=== PATIENT | male | born 1960 | race Native Hawaiian/Other Pacific Islander ===

== ENCOUNTER 2017-06-20 00:35 | Emergency (ER) | payer OTHER ==
[2017-06-20 00:39] VITALS: BP 135/83; PULSE 78; RESP 20; TEMP 98.2
[2017-06-20] MEDS ORDERED: KETOROLAC 30 MG/ML 1 ML VIAL IM STA (01:16)
[2017-06-20] MEDS ORDERED: ORPHENADRINE 30 MG/ML 2 ML VIAL IM STA (01:16)
--- NOTE | 2017-06-20 01:18 | ED ---
Back Pain HPI - General Chief Complaint: Back Pain/Injury Stated Complaint: back pain Time Seen by Provider: 06/20/17 00:50 Source: patient Limitations: no limitations - History of Present Illness Initial Comments: 57-year-old male patient presents for evaluation of left lower back pain. Patient states the pain started earlier today after he was lifting heavy loads of wood for a friend. States that it worsens night when he was going to go to bed. He states the pain does worsen with any type of movement or twisting motions. He denies any radiation of the pain down his legs. Denies any leg numbness or tingling. Denies any difficulty in relating. He denies any loss of bowel or bladder control. Denies any saddle anesthesia. States he has had chronic back pain issues in the past, states that this does feel similar to those episodes. Denies any falls or injuries causing the pain. Patient denies any recent rash, fever, chills, shortness breath, chest pain, abdominal pain, nausea, vomiting, diarrhea, constipation, dizziness, hematuria, dysuria, urinary urgency, urinary frequency, headache, visual changes, or any other complaints. - Related Data Previous Rx's Medication Instructions Recorded Cyclobenzaprine [Flexeril] 10 mg PO TID #15 tab 06/20/17 Ibuprofen [Motrin] 600 mg PO Q8HR PRN #30 tab 06/20/17 Allergies Allergy/AdvReac Type Severity Reaction Status Date / Time No Known Allergies Allergy Verified 06/20/17 00:39 Review of Systems ROS Statement: Those systems with pertinent positive or pertinent negative responses have been documented in the HPI. ROS Other: All systems not noted in ROS Statement are negative. Past Medical History Past Medical History: No Reported History History of Any Multi-Drug Resistant Organisms: None Reported Additional Past Surgical History / Comment(s): liver surgery Past Psychological History: No Psychological Hx Reported Smoking Status: Current every day smoker Past Alcohol Use History: Occasional Past Drug Use History: None Reported General Exam Limitations: no limitations General appearance: alert, in no apparent distress, other (Well-developed, well- nourished adult male patient in no acute distress. Vital signs upon presentation are temperature 98.2F, pulse 78, respirations 20, blood pressure 135/83, pulse ox 98% on room air.) Eye exam: Present: normal appearance, PERRL, EOMI. Absent: scleral icterus, conjunctival injection, periorbital swelling ENT exam: Present: normal exam, normal oropharynx, mucous membranes moist Neck exam: Present: normal inspection, full ROM. Absent: tenderness, meningismus, lymphadenopathy Respiratory exam: Present: normal lung sounds bilaterally. Absent: respiratory distress, wheezes, rales, rhonchi, stridor Cardiovascular Exam: Present: regular rate, normal rhythm, normal heart sounds. Absent: systolic murmur, diastolic murmur, rubs, gallop, clicks GI/Abdominal exam: Present: soft, normal bowel sounds. Absent: distended, tenderness, guarding, rebound, rigid Extremities exam: Present: normal inspection, full ROM, normal capillary refill , other (Lower extremity skin is pink, warm, and dry. Cap refills less than 3 seconds. Post tibial and pedal pulses are intact and 2+ bilaterally.). Absent : tenderness, pedal edema, joint swelling, calf tenderness Back exam: Present: normal inspection, other (Strength in all 4 cavities is 5/5. ). Absent: tenderness, vertebral tenderness Neurological exam: Present: alert, oriented X3, CN II-XII intact Psychiatric exam: Present: normal affect, normal mood Skin exam: Present: warm, dry, intact, normal color. Absent: rash Course Vital Signs 06/20/17 00:37 Temperature 98.2 F Pulse Rate 78 Respiratory 20 Rate Blood Pressure 135/83 O2 Sat by Pulse 98 Oximetry Medical Decision Making - Medical Decision Making 57-year-old male patient presents to emergency department today for evaluation of left lower back pain. Patient reports that he has had pain similar to this in the past. He states that symptoms started after lifting heavy loads today. Physical examination is unremarkable. Patient is neurologically intact, strength is equal in all 4 extremities. No evidence of rash or tenderness to the area. He will be given IM Toradol and Norflex here in the department. He' ll be given a prescription for ibuprofen and Flexeril at home. He is instructed to follow-up with his primary care physician for recheck in 1-2 days. He is instructed to return here immediately for any new, worsening, or concerning symptoms. He verbalizes understanding and agrees with this plan. Disposition Clinical Impression: Low back pain Disposition: HOME SELF-CARE Condition: Good Instructions: Acute Low Back Pain (ED) Additional Instructions: Take medications as directed. Apply warm moist heat to the area. Follow-up with her primary care physician for recheck in 1-2 days. Return here immediately for any new, worsening, or concerning symptoms. Prescriptions: Cyclobenzaprine [Flexeril] 10 mg PO TID #15 tab Ibuprofen [Motrin] 600 mg PO Q8HR PRN #30 tab PRN Reason: Pain Referrals: None,Stated [Primary Care Provider] - 1-2 days Time of Disposition: 01:17
== END 2017-06-20 01:42 | disposition home or self-care (01) ==
LOC: EC 00:35
DX: M54.5 Low back pain (principal); F17.200 Nicotine dependence, unspecified, uncomplicated; X50.0XXA Overexertion from strenuous movement or load, initial encounter
CPT/HCPCS: 99283 ×2; 96372 ×3; J2360; J1885

== ENCOUNTER 2018-01-09 20:47 | Emergency (ER) | payer OTHER ==
[2018-01-09 21:17] VITALS: BP 137/92; PULSE 91; RESP 18; TEMP 98.4
[2018-01-09] MEDS ORDERED: OFLOXACIN 0.3% OPHTH DROPS 5 ML BOTTLE RIGHT EAR STA (22:07)
[2018-01-09] MEDS ORDERED: CEPHALEXIN 500 MG CAP PO STA (22:08)
--- NOTE | 2018-01-09 22:29 | ED ---
General Adult HPI - General Chief complaint: ENT Stated complaint: rt earache Time Seen by Provider: 01/09/18 21:56 Source: patient, RN notes reviewed Mode of arrival: ambulatory Limitations: no limitations - History of Present Illness Initial comments: 57-year-old male presents to the emergency department for a chief complaint of right ear pain x 12 hours. Patient states he woke up this morning and had pain in his right ear. Patient admits that his hearing is mildly decreased in the right ear as well. Patient states that his looked in the ear and states it looked red. Patient denies any recent swimming or hot tubs. Patient denies anything different in his daily routine. Patient denies any cough congestion sore throat. No other complaints at this time including shortness of breath, chest pain, abdominal pain, nausea or vomiting, or headache. - Related Data Previous Rx's Medication Instructions Recorded Cephalexin [Keflex] 500 mg PO Q12HR #20 cap 01/09/18 Ofloxacin 0.3% Otic Soln [Floxin 10 drops RIGHT EAR BID 10 Days ml 01/09/18 0.3% Otic Soln] Allergies Allergy/AdvReac Type Severity Reaction Status Date / Time No Known Allergies Allergy Verified 01/09/18 21:17 Review of Systems ROS Statement: Those systems with pertinent positive or pertinent negative responses have been documented in the HPI. ROS Other: All systems not noted in ROS Statement are negative. Past Medical History Past Medical History: No Reported History History of Any Multi-Drug Resistant Organisms: None Reported Past Surgical History: No Surgical Hx Reported Additional Past Surgical History / Comment(s): liver surgery Past Psychological History: No Psychological Hx Reported Smoking Status: Current every day smoker Past Alcohol Use History: Daily Past Drug Use History: None Reported General Exam Limitations: no limitations General appearance: alert, in no apparent distress Head exam: Present: atraumatic, normocephalic, normal inspection Eye exam: Present: normal appearance, PERRL, EOMI. Absent: scleral icterus, conjunctival injection, periorbital swelling ENT exam: Present: normal oropharynx. Absent: TM's normal bilaterally (Right ear canal has exudative drainage. Tympanic membrane not visualized due to drainage. Patient has pain with pulling of the pinna. No pain with palpation of the tragus. No pain, swelling, or redness in the mastoid area. Left ear canal and tympanic membrane within normal limits.), normal external ear exam Neck exam: Present: normal inspection, full ROM. Absent: tenderness, meningismus, lymphadenopathy Respiratory exam: Present: normal lung sounds bilaterally. Absent: respiratory distress, wheezes, rales, rhonchi, stridor Cardiovascular Exam: Present: regular rate, normal rhythm, normal heart sounds. Absent: systolic murmur, diastolic murmur, rubs, gallop, clicks Course Vital Signs 01/09/18 21:15 Temperature 98.4 F Pulse Rate 91 Respiratory 18 Rate Blood Pressure 137/92 O2 Sat by Pulse 99 Oximetry Medical Decision Making - Medical Decision Making 57-year-old male presents to the emergency department for chief late of right ear pain times one day. Patient states his said it looked red. Patient denies swimming or hot tubs. Patient is not diabetic. On exam there is exudative drainage in the external ear canal. Drainage was cultured. No pain to tapping or palpation of the mastoid. No pain behind the ear. No redness or swelling to the mastoid process. The rest of the exam is unremarkable. Patient was given some ofloxacin drops and Keflex in the emergency department. He was given a prescription for ofloxacin and Keflex to start tomorrow. He is to follow-up with his primary care provider in one to 2 days. This was heavily stressed as if he is not getting better it can cause worse infections. He was educated on this. Patient will return to the emergency department if he develops any fevers or worsening symptoms. Disposition Clinical Impression: Otitis externa Disposition: HOME SELF-CARE Condition: Good Instructions: Otitis Externa (ED) Additional Instructions: Please use antibiotic drops and oral antibiotic as directed. Please follow-up with primary care provider in one to 2 days. Please return to the emergency department if you have any worsening symptoms, develop a fever, or have pain behind the ear. Prescriptions: Cephalexin [Keflex] 500 mg PO Q12HR #20 cap Ofloxacin 0.3% Otic Soln [Floxin 0.3% Otic Soln] 10 drops RIGHT EAR BID 10 Days ml Is patient prescribed a controlled substance at d/c from ED?: No Referrals: Margaret Workman MD [Primary Care Provider] - 1-2 days Time of Disposition: 22:28
== END 2018-01-09 22:35 | disposition home or self-care (01) ==
LOC: EC 20:47
DX: H60.91 Unspecified otitis externa, right ear (principal); F17.200 Nicotine dependence, unspecified, uncomplicated
CPT/HCPCS: 87070; 87205; 99283

== ENCOUNTER 2018-03-08 17:04 | Observation (INO) | payer OTHER ==
--- NOTE | 2018-03-08 17:59 | CT ---
EXAMINATION TYPE: CT mastoid wo con DATE OF EXAM: 03/08/2018 COMPARISON: NONE HISTORY: Swelling behind right ear. CT DLP: 150 mGycm. Automated Exposure Control for Dose Reduction was Utilized. TECHNIQUE: CT scan of internal auditory canal is performed without contrast, thin cut axial images ar e obtained, coronal reformatted images are also reviewed. FINDINGS: There is mild mucosal thickening in the medial and anterior right mastoid sinus. There are small fluid levels. The internal auditory canals are symmetric. There is no sign of cerebellopontine angle mass. There is debris in the external auditory canals bilaterally and more on the right side. T his extends on the right side to the tympanic membrane. There is some mucosal thickening in the epity mpanic recess on the right side. There is significant opacification of the right middle ear cavity. T he cochlea and semicircular canals are symmetric. There is slight expansion of the right external aud itory canal with probably some erosion of the roof. IMPRESSION: There is evidence for chronic right side otitis interna and external. There is also mild right side m astoiditis. There is significant opacification of the external auditory canals and much more on the r ight side more likely related to debris. Tumor is not excluded. Follow-up is recommended.
[2018-03-08] MEDS ORDERED: NALOXONE 0.4 MG/ML 1 ML VIAL IV PRN (18:16)
--- NOTE | 2018-03-08 18:16 | ED ---
ENT HPI - General Chief complaint: ENT Stated complaint: Ear Pain, Cannot hear Time Seen by Provider: 03/08/18 17:25 Source: patient Mode of arrival: ambulatory Limitations: no limitations - History of Present Illness Initial comments: 57-year-old male patient presents to the emergency department today for decreased hearing his bilateral ears. Patient states that the right ear is worse and that he has been unable to care for the last 3 days. Patient states he has also been having pain to the right ear. States that he has had pain and swelling behind the right ear as well. Patient states that he did have an infection on the right side approximately 3 months ago. States that he doesn't feel like it ever got better. States he did complete his antibiotic prescription. Patient denies any fevers or chills. States he has been sick recently with nasal congestion and sore throat. States that he has had clear drainage from the left ear but none from the right. Patient denies any recent rash, shortness breath, chest pain, abdominal pain, nausea, vomiting, diarrhea, constipation, back pain, numbness, tingling, dizziness, weakness, hematuria, dysuria, urinary urgency, urinary frequency, headache, visual changes, or any other complaints. - Related Data Home Medications Medication Instructions Recorded Confirmed Ofloxacin 0.3% Otic Soln [Floxin 10 drops RIGHT EAR DIRECTED 03/08/18 0.3% Otic Soln] Allergies Allergy/AdvReac Type Severity Reaction Status Date / Time No Known Allergies Allergy Verified 03/08/18 17:40 Review of Systems ROS Statement: Those systems with pertinent positive or pertinent negative responses have been documented in the HPI. ROS Other: All systems not noted in ROS Statement are negative. Past Medical History Past Medical History: No Reported History History of Any Multi-Drug Resistant Organisms: None Reported Past Surgical History: No Surgical Hx Reported Additional Past Surgical History / Comment(s): liver surgery Past Psychological History: No Psychological Hx Reported Smoking Status: Current every day smoker Past Alcohol Use History: Occasional Past Drug Use History: None Reported General Exam Limitations: no limitations General appearance: alert, in no apparent distress, appears intoxicated, other ( This is a well-developed, well-nourished adult male patient in no acute distress. Vital signs upon presentation are temperature 98.2F, pulse 100, respirations 16, blood pressure 134/88, pulse ox 97% on room air.) Eye exam: Present: normal appearance, PERRL, EOMI. Absent: scleral icterus, conjunctival injection, periorbital swelling ENT exam: Present: normal oropharynx, mucous membranes moist, TM's normal bilaterally (Right tympanic membrane is bulging, evidence of effusion. Patient' s canal does exhibit some cerumen but is not completely obstructed. Left tympanic membrane appears bulging with evidence of effusion.). Absent: normal exam Neck exam: Present: normal inspection. Absent: tenderness, meningismus, lymphadenopathy Respiratory exam: Present: normal lung sounds bilaterally. Absent: respiratory distress, wheezes, rales, rhonchi, stridor Cardiovascular Exam: Present: regular rate, normal rhythm, normal heart sounds. Absent: systolic murmur, diastolic murmur, rubs, gallop, clicks GI/Abdominal exam: Present: soft, normal bowel sounds. Absent: distended, tenderness, guarding, rebound, rigid Neurological exam: Present: alert, oriented X3, CN II-XII intact Psychiatric exam: Present: normal affect, normal mood Skin exam: Present: warm, dry, intact, normal color. Absent: rash Course Vital Signs 03/08/18 17:20 Temperature 98.2 F Pulse Rate 100 Respiratory 16 Rate Blood Pressure 134/88 O2 Sat by Pulse 97 Oximetry Medical Decision Making - Medical Decision Making 57-year-old male patient presents to emergency department today for evaluation of decreased hearing. He also is experiencing pain to the right year and also to the area behind the right ear with swelling to the area. Tympanic membrane examination did reveal bulging with evidence of effusion. Left tympanic membrane appeared to be opacified. CT of the mastoid bones was obtained due to the pain behind the right ear did show mild mastoiditis with chronic internal and external right-sided ear infection. There was evidence of a possible tumor to the right canal with erosion to the roof of the external auditory canal. Patient will be admitted to the hospital for ENT consult. We'll start vancomycin and Unasyn for mastoiditis. Did discuss findings and results with the patient, he is agreeable with this plan. - Lab Data Result diagrams: 03/08/18 18:48 Lab Results 03/08/18 Range/Units 18:48 WBC 7.0 (3.8-10.6) k/uL RBC 4.44 (4.30-5.90) m/uL Hgb 15.1 (13.0-17.5) gm/dL Hct 44.5 (39.0-53.0) % MCV 100.2 H (80.0-100.0) fL MCH 34.1 (25.0-35.0) pg MCHC 34.0 (31.0-37.0) g/dL RDW 14.6 (11.5-15.5) % Plt Count 240 (150-450) k/uL - Radiology Data Radiology results: report reviewed, image reviewed Computed tomography scan of the mastoids and had was obtained without contrast. Report was reviewed in its entirety. Impression by Dr. Whiting shows evidence for chronic right side otitis interna and externa. There is also mild right-sided mastoiditis. There is significant opacification of the external auditory canals and much more on the right side more likely related to debris. Tumor is not excluded. Follow-up is recommended. Disposition Clinical Impression: Mastoiditis, Chronic otitis media of right ear with effusion Disposition: ADMITTED IP TO THIS [facility] Condition: Serious Referrals: Margaret Workman MD [Primary Care Provider] - 1-2 days Decision to Admit Reason: Admit from EC Decision Date: 03/08/18 Decision Time: 19:16
[2018-03-08] MEDS ORDERED: AMPICILLIN-SULBACTAM 3 GM in SODIUM CHLORIDE 0.9% 100 ML IVPB STA (18:25)
[2018-03-08] MEDS ORDERED: VANCOMYCIN IV PER PHARMACY 1 EACH MISC MISCELLANE PRN (18:25)
[2018-03-08] MEDS ORDERED: VANCOMYCIN 1,250 MG in SODIUM CHLORIDE 0.9% 250 ML IVPB STA (18:35)
[2018-03-08 19:07] LABS: Basophils % (A) 1 %; Eosinophils # (A) 0.1 k/uL (0-0.7); Eosinophils % (A) 2 %; HCT 44.5 % (39.0-53.0); HGB 15.1 gm/dL (13.0-17.5); Lymphocytes # (A) 4.1 k/uL (1.0-4.8); Lymphocytes % (A) 59 %; MCH 34.1 pg (25.0-35.0); MCV 100.2 fL (80.0-100.0); Macrocytosis Slight; Monocytes # (A) 0.3 k/uL (0-1.0); Monocytes % (A) 4 %; Neutrophils # (A) 2.2 k/uL (1.3-7.7); Neutrophils % (A) 32 %; Platelet Count 240 k/uL (150-450); RBC 4.44 m/uL (4.30-5.90); RDW 14.6 % (11.5-15.5)
[2018-03-08 19:14] LABS: ALT 26 U/L (21-72); AST 47 U/L (17-59); Albumin 4.6 g/dL (3.5-5.0); Alcohol 196 mg/dL; Alkaline Phosphatase 65 U/L (38-126); Anion Gap 12 mmol/L; Blood Urea Nitrogen 7 mg/dL (9-20); Calcium 9.3 mg/dL (8.4-10.2); Carbon Dioxide 25 mmol/L (22-30); Chloride 106 mmol/L (98-107); Glucose 75 mg/dL (74-99); Potassium 4.3 mmol/L (3.5-5.1); Sodium 143 mmol/L (137-145); Total Bilirubin 0.1 mg/dL (0.2-1.3); Total Protein 7.4 g/dL (6.3-8.2)
[2018-03-08] MEDS ORDERED: HYDROcodone/APAP 5-325MG 1 EACH TAB PO PRN (21:37)
[2018-03-08] MEDS ORDERED: ALPRAZolam 0.25 MG TAB PO PRN (21:37)
[2018-03-08] MEDS ORDERED: TEMAZEPAM 15 MG CAP PO PRN (21:37)
--- NOTE | 2018-03-08 22:05 | XR ---
EXAMINATION TYPE: XR chest 1V portable DATE OF EXAM: 03/08/2018 COMPARISON: NONE HISTORY: Pneumonia. Chest pain TECHNIQUE: Single frontal view of the chest is obtained. FINDINGS: There is no heart failure nor confluent pneumonic infiltrate. Heart size is normal. Costop hrenic angles are clear. There is minimal pleural thickening at the lung apices. IMPRESSION: No active cardiopulmonary disease.
[2018-03-08] MEDS: SODIUM CHLORIDE 0.9% 1,000 ML IV SCH (22:08)
[2018-03-08] MEDS: ACETAMINOPHEN TAB 325 MG TAB PO PRN (22:10)
--- NOTE | 2018-03-08 22:20 | HP ---
HISTORY AND PHYSICAL DATE OF SERVICE: 03/08/18 CHIEF COMPLAINT: Pain and swelling and discharge from the right ear and hearing deficit. HISTORY OF PRESENT ILLNESS: This 57-year-old gentleman with past medical history of DVT, history of PE, history of pneumothorax being followed by Dr. aMrgaret Workman in the patient complaining of ear discharge for the last several days. The patient had decreased hearing on the right side. The patient apparently had previous infection in the right ear about 3 months ago. The patient was given antibiotics and apparently got better. Currently the patient came to the ER and the patient also had a CT scan showed evidence of chronic right-sided external otitis internal with mastoiditis debris and tumor cannot be ruled out. Patient was admitted to the hospital for further evaluation and treatment. There is no history of fever, rigors. No history of headache, loss of consciousness or seizures. Past medical history of DVT, history of blood clots in the lungs, legs and pneumothorax chest tube drainage. MEDICATIONS: Medications prior to admission: Floxin otic eye drops. ALLERGIES: None. FAMILY HISTORY: History of cancer in the family. SOCIAL HISTORY: History of smoking, ongoing. REVIEW OF SYSTEMS: ENT: Mentioned earlier. Cardiovascular: No angina or palpitations. Respirations: No cough or hemoptysis. GI: No nausea. : No dysuria. Nervous System: No numbness or weakness. ALLERGY/IMMUNOLOGY: No asthma or hayfever. MUSCULOSKELETAL: As mentioned earlier. HEMATOLOGY/ONCOLOGY: No history of diabetes or hypothyroidism. CONSTITUTIONAL: As mentioned earlier. Dermatology: Negative. Rheumatology: Negative. Psychiatry: As mentioned earlier. PHYSICAL EXAMINATION: The patient is alert, oriented x3. The pulse is 75, blood pressure 118/80, respirations 16, temperature 98.2, pulse ox 99% on room air. HEENT: Conjunctivae normal. Oral mucosa moist. Some tenderness in the right mastoid area. Some discharge also present in the right ear. No erythema noted. Neck is no jugular venous distention. No carotid bruit. No lymph node enlargement. Cardiovascular: S1, S2. No S3, no S4. Respiratory: Breath sounds diminished in the bases. No rhonchi. No crackles. ABDOMEN: Soft. Nontender. No mass palpable. Legs are no edema. No swelling. Nervous system: No focal deficits. SKIN: The patient has tanned skin. LABS: WBC 7, hemoglobin is 15.1, MCV 100.2. ASSESSMENT: 1. Right external and internal otitis media. 2. Rule out malignant external otitis, malignancy. 3. History of deep vein thrombosis. 4. History of pneumothorax. 5. History of nicotine dependence. RECOMMENDATIONS AND DISCUSSION: In this 57-year-old male recommend to continue current medications, symptomatic treatment and management and will initiate Unasyn and vancomycin. Otherwise closely monitor. ENT evaluation. Guarded prognosis because of multiple complex medical issues. Further recommendations to follow. DVT prophylaxis. See orders for details. MMODL / IJN: [id number] /
[2018-03-09] MEDS: AMPICILLIN-SULBACTAM 3 GM in SODIUM CHLORIDE 0.9% 100 ML IVPB SCH ×5 (00:01→23:49)
[2018-03-09] MEDS ORDERED: HEPARIN SODIUM,PORCINE 5,000 UNIT/ML 1 ML VIAL ONE (09:00)
[2018-03-09] MEDS ORDERED: NICOTINE 14MG/24HR PATCH TRANSDERM ONE (09:00)
[2018-03-09] MEDS: HEPARIN SODIUM,PORCINE 5,000 UNIT/ML 1 ML VIAL SQ SCH ×2 (11:30→20:52)
[2018-03-09] MEDS: VANCOMYCIN 1,250 MG in SODIUM CHLORIDE 0.9% 250 ML IVPB SCH ×3 (11:30→21:28)
[2018-03-09] MEDS: NICOTINE 14MG/24HR PATCH TRANSDERM SCH (11:31)
[2018-03-09] MEDS: ACETAMINOPHEN TAB 325 MG TAB PO PRN ×2 (13:14→17:46)
[2018-03-09 15:05] VITALS: RESP 16
[2018-03-09] MEDS: SODIUM CHLORIDE 0.9% 1,000 ML IV SCH (17:45)
[2018-03-10] MEDS ORDERED: VANCOMYCIN TROUGH DUE 1 EACH MISC MISCELLANE ONE (05:00)
[2018-03-10] MEDS: AMPICILLIN-SULBACTAM 3 GM in SODIUM CHLORIDE 0.9% 100 ML IVPB SCH ×2 (05:00→11:54)
[2018-03-10] MEDS: VANCOMYCIN 1,250 MG in SODIUM CHLORIDE 0.9% 250 ML IVPB SCH ×2 (06:04→13:09)
[2018-03-10] MEDS: NICOTINE 14MG/24HR PATCH TRANSDERM SCH (08:10)
[2018-03-10] MEDS: HEPARIN SODIUM,PORCINE 5,000 UNIT/ML 1 ML VIAL SQ SCH (08:10)
[2018-03-10] MEDS: SODIUM CHLORIDE 0.9% 1,000 ML IV SCH (11:54)
--- NOTE | 2018-03-10 13:08 | P.PN ---
Subjective Progress Note Date: 03/09/18 Progress note being dictated for Dr. Panda. Interval history: This is a 57-year-old gentleman admitted with right external and internal otitis media, ruling out malignant external otitis and multiple other medical issues. Cultures obtained, pending. Afebrile, preliminary blood cultures negative maintained on Unasyn and vancomycin. ENT consult in place with recommendations pending. Complains of mild discomfort, relieved with Tylenol. Reports decreased hearing unchanged. Objective - Vital Signs Vital signs: Vital Signs Temp 98.4 F 03/09/18 14:25 Pulse 65 03/09/18 14:25 Resp 16 03/09/18 14:25 BP 118/69 03/09/18 14:25 Pulse Ox 98 03/09/18 14:25 Intake & Output 03/09/18 03/09/18 03/10/18 06:59 18:59 06:59 Intake Total 1100 Balance 1100 Intake: Intake, IV Titration 1100 Amount Ampicillin-Sulbactam 3 gm 100 In Sodium Chloride 0.9% 100 ml @ 100 mls/hr IVPB Q6HR DELIO Rx#:[id number] Vancomycin 1,250 mg In 750 Sodium Chloride 0.9% 250 ml @ 125 mls/hr IVPB ONCE STA Rx#:[id number] Vancomycin 1,250 mg In 250 Sodium Chloride 0.9% 250 ml @ 125 mls/hr IVPB Q8H DELIO Rx#:[id number] Other: # Voids 2 - Exam PHYSICAL EXAM: VITAL SIGNS: As above GENERAL:Sitting up in bed, no acute distress HEENT: Conjunctivae normal. eyes normal. Right mastoid area tenderness, minimal discharge, no erythema noted. NECK: No JVD. No thyroid enlargement. No LNs CARDIOVASCULAR: S1, S2 muffled. No murmur RESPIRATION: Breath sounds diminished in the bases. No rhonchi or crackles. No bronchial breathing. ABDOMEN: Soft, nontender . No guarding. no masses palpable. Bowel sounds heard. LEGS: No edema. no swelling PSYCHIATRY: Alert and oriented -3, mood and affect normal. NERVOUS SYSTEM: Cranial N 2-12 grossly normal. Moves all 4 limbs. Diffuse weakness No focal deficits. No sensory deficit. No signs of cerebellar dysfucntion. - Labs CBC & Chem 7: 03/08/18 18:48 03/08/18 18:48 Labs: Microbiology - Last 24 Hours (Table) 03/08/18 18:48 Blood Culture - Preliminary Blood No Growth after 24 hours 03/09/18 12:00 Ear Culture - Preliminary Ear - Right Assessment and Plan Assessment: 1. Right external and internal otitis media 2. Rule out malignant external otitis malignancy, possible tumor per CT 3. History of DVT 4. Nicotine dependence Plan: Continue on current medication regime ,monitoring and symptomatic treatment. Continue on IV antibiotics. Follow cultures closely. ENT consult in place with recommendations pending. The impression and plan of care has been dictated as directed. : I performed a history and examination of this patient, discussed the same with the dictator. I agree with the dictator's note ,documented as a scribe. Any additional findings or plans will be noted.
[2018-03-10 15:52] VITALS: BP 123/79; PULSE 76; TEMP 98.4
[2018-03-10] MEDS ORDERED: LEVOFLOXACIN 500 MG TAB PO SCH (16:00)
--- NOTE | 2018-03-10 19:24 | P.DS ---
Providers Date of admission: 03/08/18 19:16 Expected date of discharge: 03/10/18 Attending physician: Kim Del Rio Consults: 03/08/18 18:17 Consult Physician Routine Consulting Provider: Dandy Bynum Reason/Comments: Mastoiditis; Chronic right otitis media Do you want consulting provider notified?: Yes Primary care physician: [facility] Course: Final Diagnoses: Hospital course:This is a 57-year-old gentleman admitted with right external and internal otitis media, ruling out malignant external otitis and multiple other medical issues. Cultures obtained, pending. Afebrile, preliminary blood cultures negative maintained on Unasyn and vancomycin. ENT consult in place with recommendations pending. Complains of mild discomfort, relieved with Tylenol. Reports decreased hearing unchanged. Currently denies pain .Significant clinical improvement. Case reviewed by Dr. Burger ENT, recommendations given including discharge antibiotics and follow-up outpatient in his office to facilitate a more comprehensive exam. Patient is being discharged home in stable condition with guarded prognosis. EXAM: GENERAL: Alert and oriented 3 ,no acute distress HEENT: Conjunctivae normal. eyes normal. Right mastoid area diffuse tenderness , minimal discharge, no erythema noted. CARDIOVASCULAR: S1, S2 muffled. No murmur RESPIRATION: Breath sounds diminished in the bases. No rhonchi or crackles. No bronchial breathing. ABDOMEN: Soft, nontender . No guarding. no masses palpable. Bowel sounds heard. NERVOUS SYSTEM: No focal deficits. Microbiology 03/09/18 12:00 Ear - Right Gram Stain - Preliminary 03/09/18 12:00 Ear - Right Ear Culture - Preliminary Yeast species 03/08/18 18:48 Blood Blood Culture - Preliminary No Growth after 24 hours The impression and plan of care has been dictated as directed. : I performed a history and examination of this patient, discussed the same with the dictator. I agree with the dictator's note ,documented as a scribe. Any additional findings or plans will be noted. Time taken: 35 minutes Patient Condition at Discharge: Stable Plan - Discharge Summary Discharge Rx Participant: Yes New Discharge Prescriptions: New Acetaminophen Tab [Tylenol] 650 mg PO Q6HR PRN tab PRN Reason: Mild Pain Or Fever > 100.5 Ciprofloxacin-Dexameth [Ciprodex Otic Susp] 4 drops RIGHT EAR BID 10 Days #1 bottle Levofloxacin [Levaquin] 500 mg PO Q24H #10 tab Nicotine 14Mg/24Hr Patch [Habitrol] 1 patch TRANSDERM DAILY #30 patch Continue Ofloxacin 0.3% Otic Soln [Floxin 0.3% Otic Soln] 10 drops RIGHT EAR DIRECTED Discharge Medication List Ofloxacin 0.3% Otic Soln [Floxin 0.3% Otic Soln] 10 drops RIGHT EAR DIRECTED 03/08/18 [History] Acetaminophen Tab [Tylenol] 650 mg PO Q6HR PRN tab 03/10/18 [Rx] Ciprofloxacin-Dexameth [Ciprodex Otic Susp] 4 drops RIGHT EAR BID 10 Days #1 bottle 03/10/18 [Rx] Levofloxacin [Levaquin] 500 mg PO Q24H #10 tab 03/10/18 [Rx] Nicotine 14Mg/24Hr Patch [Habitrol] 1 patch TRANSDERM DAILY #30 patch 03/10/18 [ Rx] Follow up Appointment(s)/Referral(s): Dandy Bynum DO [Doctor of Osteopathic Medicine] - 03/15/18 1:00 pm ( bring photo id and insurance card and hospital records from this admission) Margaret Workman MD [Primary Care Provider] - 03/24/18 9:00 am Ambulatory/Diagnostic Orders: Complete Blood Count w/diff [LAB.AMB] Time Frame: 3 Days, Location: None Selected Patient Instructions/Handouts: Otitis Media (DC), Mastoiditis (DC) Activity/Diet/Wound Care/Special Instructions: Diet: cardiac No smoking Activity: limited till F/U Discharge Disposition: HOME SELF-CARE
[2018-03-10] MEDS ORDERED: CIPROFLOXACIN-DEXAMETH 0.3-0.1% DROPS 7.5 ML BTL RIGHT EAR SCH (21:00)
== END 2018-03-10 16:16 | disposition home or self-care (01) ==
LOC: EC 17:04 → INTOOBSV 19:16 → 4MS4W 19:16 → UNDODISIN 03-10 16:16
PROVIDERS: ADMIT Internal Medicine; ATTEND Internal Medicine
DX: H65.491 Other chronic nonsuppurative otitis media, right ear (principal); H70.11 Chronic mastoiditis, right ear; H91.93 Unspecified hearing loss, bilateral; Z86.718 Personal history of other venous thrombosis and embolism; Z86.711 Personal history of pulmonary embolism; Z80.9 Family history of malignant neoplasm, unspecified; Z86.19 Personal history of other infectious and parasitic diseases; Z98.890 Other specified postprocedural states; Z87.09 Personal history of other diseases of the respiratory system; F17.200 Nicotine dependence, unspecified, uncomplicated
CPT/HCPCS: 96366 ×3; 96372 ×2; 96365; 96367; 99284; 36415; 80053; 85025; 80202; 87040; 80320; 87070; 87205; 71045; 70486; G0378 ×3; S4990 ×2; J3370 ×3; J1644 ×2; J0295 ×3

== ENCOUNTER 2018-04-12 00:40 | Observation (INO) | payer OTHER ==
[2018-04-12] MEDS ORDERED: ASPIRIN 81 MG PO STA (01:01)
[2018-04-12] MEDS ORDERED: NITROGLYCERIN OINT 1 INCH/GM PACKET TOPICAL STA (01:01)
--- NOTE | 2018-04-12 01:06 | ED ---
General Adult HPI - General Chief complaint: Chest Pain Stated complaint: Chest pain Time Seen by Provider: 04/12/18 00:57 Source: patient, RN notes reviewed Mode of arrival: ambulatory Limitations: no limitations - History of Present Illness Initial comments: Patient is a pleasant 57-year-old male presenting to the emergency Department with complaints of chest discomfort. Onset of symptoms was earlier this morning. Symptoms have been present throughout the day. Discomfort is mild. No history of similar symptoms previously. There is some mild associated dyspnea. Patient has been a little bit sweaty. No nausea. Discomfort remains mild at this time. Patient states his heart has been racing as well. - Related Data Home Medications Medication Instructions Recorded Confirmed Ofloxacin 0.3% Otic Soln [Floxin 10 drops RIGHT EAR DIRECTED 03/08/18 0.3% Otic Soln] Previous Rx's Medication Instructions Recorded Acetaminophen Tab [Tylenol] 650 mg PO Q6HR PRN tab 03/10/18 Ciprofloxacin-Dexameth [Ciprodex 4 drops RIGHT EAR BID 10 Days #1 03/10/18 Otic Susp] bottle Levofloxacin [Levaquin] 500 mg PO Q24H #10 tab 03/10/18 Nicotine 14Mg/24Hr Patch [Habitrol] 1 patch TRANSDERM DAILY #30 patch 03/10/18 Allergies Allergy/AdvReac Type Severity Reaction Status Date / Time No Known Allergies Allergy Verified 04/12/18 00:47 Review of Systems ROS Statement: Those systems with pertinent positive or pertinent negative responses have been documented in the HPI. ROS Other: All systems not noted in ROS Statement are negative. Constitutional: Denies: fever Eyes: Denies: eye pain ENT: Denies: ear pain Respiratory: Reports: dyspnea. Denies: cough Cardiovascular: Reports: chest pain, palpitations Endocrine: Denies: fatigue Gastrointestinal: Denies: abdominal pain Genitourinary: Denies: dysuria Musculoskeletal: Denies: back pain Skin: Denies: rash Neurological: Denies: weakness Past Medical History Past Medical History: Deep Vein Thrombosis (DVT) Additional Past Medical History / Comment(s): "blood clots in both legs, past pneumothorax/chest tube (rt lung) stomach ulcer History of Any Multi-Drug Resistant Organisms: None Reported Past Surgical History: No Surgical Hx Reported Additional Past Surgical History / Comment(s): chest tube Past Anesthesia/Blood Transfusion Reactions: No Reported Reaction Past Psychological History: No Psychological Hx Reported Smoking Status: Current every day smoker Past Alcohol Use History: Occasional Past Drug Use History: None Reported - Past Family History Father Family Medical History: Cancer Additional Family Medical History / Comment(s): pt not sure what kind of cancer his dad had Mother Family Medical History: Diabetes Mellitus, Hypertension General Exam Limitations: no limitations General appearance: alert, in no apparent distress Head exam: Present: atraumatic Eye exam: Present: normal appearance, PERRL ENT exam: Present: normal oropharynx Neck exam: Present: normal inspection Respiratory exam: Present: normal lung sounds bilaterally Cardiovascular Exam: Present: regular rate, normal rhythm, normal heart sounds Expanded Peripheral pulses: 2+: Radial (R), Radial (L), Dorsalis Pedis (R), Dorsalis Pedis (L) GI/Abdominal exam: Present: soft. Absent: tenderness Extremities exam: Present: normal inspection. Absent: pedal edema, calf tenderness Neurological exam: Present: alert Psychiatric exam: Present: normal affect, normal mood Skin exam: Present: normal color Course Vital Signs 04/12/18 00:45 Temperature 97.7 F Pulse Rate 78 Respiratory 18 Rate Blood Pressure 125/80 O2 Sat by Pulse 97 Oximetry EKG Findings - EKG Comments: EKG Findings:: Normal sinus rhythm 72. CA 172. QRS 84. QT 370. QTc 45. Normal axis. Normal QRS. Prominent T waves. Medical Decision Making - Medical Decision Making Patient reevaluated and resting comfortably in bed. Patient and family updated on results and plan. Case was discussed with Dr. Mora, who will admit for hospital call. - Lab Data Result diagrams: 04/12/18 01:02 04/12/18 01:02 Lab Results 04/12/18 04/12/18 04/12/18 Range/Units 01:02 01:02 01:02 WBC 8.2 (3.8-10.6) k/uL RBC 3.97 L (4.30-5.90) m/uL Hgb 13.3 (13.0-17.5) gm/dL Hct 39.8 (39.0-53.0) % MCV 100.4 H (80.0-100.0) fL MCH 33.5 (25.0-35.0) pg MCHC 33.4 (31.0-37.0) g/dL RDW 13.9 (11.5-15.5) % Plt Count 220 (150-450) k/uL PT (9.0-12.0) sec INR (<1.2) APTT (22.0-30.0) sec D-Dimer (<0.60) mg/L FEU Sodium 141 (137-145) mmol/L Potassium 4.5 (3.5-5.1) mmol/L Chloride 109 H (98-107) mmol/L Carbon Dioxide 21 L (22-30) mmol/L Anion Gap 11 mmol/L BUN 8 L (9-20) mg/dL Creatinine 0.70 (0.66-1.25) mg/dL Est GFR (CKD-EPI)AfAm >90 (>60 ml/min/1.73 sqM) Est GFR (CKD-EPI)NonAf >90 (>60 ml/min/1.73 sqM) Glucose 80 (74-99) mg/dL Calcium 8.8 (8.4-10.2) mg/dL Magnesium 1.9 (1.6-2.3) mg/dL Total Bilirubin 0.3 (0.2-1.3) mg/dL AST 36 (17-59) U/L ALT 24 (21-72) U/L Alkaline Phosphatase 62 (38-126) U/L Total Creatine Kinase 272 H (55-170) U/L CK-MB (CK-2) 1.1 (0.0-2.4) ng/mL CK-MB (CK-2) Rel Index 0.4 Troponin I <0.012 (0.000-0.034) ng/mL NT-Pro-B Natriuret Pep pg/mL Total Protein 6.8 (6.3-8.2) g/dL Albumin 4.2 (3.5-5.0) g/dL 04/12/18 04/12/18 Range/Units 01:02 01:02 WBC (3.8-10.6) k/uL RBC (4.30-5.90) m/uL Hgb (13.0-17.5) gm/dL Hct (39.0-53.0) % MCV (80.0-100.0) fL MCH (25.0-35.0) pg MCHC (31.0-37.0) g/dL RDW (11.5-15.5) % Plt Count (150-450) k/uL PT 10.5 (9.0-12.0) sec INR 1.1 (<1.2) APTT 25.4 (22.0-30.0) sec D-Dimer <0.17 (<0.60) mg/L FEU Sodium (137-145) mmol/L Potassium (3.5-5.1) mmol/L Chloride (98-107) mmol/L Carbon Dioxide (22-30) mmol/L Anion Gap mmol/L BUN (9-20) mg/dL Creatinine (0.66-1.25) mg/dL Est GFR (CKD-EPI)AfAm (>60 ml/min/1.73 sqM) Est GFR (CKD-EPI)NonAf (>60 ml/min/1.73 sqM) Glucose (74-99) mg/dL Calcium (8.4-10.2) mg/dL Magnesium (1.6-2.3) mg/dL Total Bilirubin (0.2-1.3) mg/dL AST (17-59) U/L ALT (21-72) U/L Alkaline Phosphatase (38-126) U/L Total Creatine Kinase (55-170) U/L CK-MB (CK-2) (0.0-2.4) ng/mL CK-MB (CK-2) Rel Index Troponin I (0.000-0.034) ng/mL NT-Pro-B Natriuret Pep 49 pg/mL Total Protein (6.3-8.2) g/dL Albumin (3.5-5.0) g/dL - Radiology Data Radiology results: image reviewed (Chest x-ray shows chronic pleural and pulmonary scarring. No change of previous. Normal heart.) Disposition Clinical Impression: Chest pain Disposition: ADMITTED IP TO THIS [facility] Referrals: Margaret oWrkman MD [Primary Care Provider] - 1-2 days Decision Time: 03:14
[2018-04-12 01:24] LABS: HCT 39.8 % (39.0-53.0); HGB 13.3 gm/dL (13.0-17.5); MCH 33.5 pg (25.0-35.0); MCHC 33.4 g/dL (31.0-37.0); MCV 100.4 fL (80.0-100.0); Platelet Count 220 k/uL (150-450); RBC 3.97 m/uL (4.30-5.90); RDW 13.9 % (11.5-15.5); WBC 8.2 k/uL (3.8-10.6)
[2018-04-12 01:34] LABS: ALT 24 U/L (21-72); AST 36 U/L (17-59); Albumin 4.2 g/dL (3.5-5.0); Alkaline Phosphatase 62 U/L (38-126); Anion Gap 11 mmol/L; Blood Urea Nitrogen 8 mg/dL (9-20); Calcium 8.8 mg/dL (8.4-10.2); Carbon Dioxide 21 mmol/L (22-30); Chloride 109 mmol/L (98-107); D-Dimer <0.17 mg/L FEU (<0.60); Glucose 80 mg/dL (74-99); INR 1.1 (<1.2); Magnesium 1.9 mg/dL (1.6-2.3); Partial Thromboplastin Time 25.4 sec (22.0-30.0); Prothrombin Time 10.5 sec (9.0-12.0); Sodium 141 mmol/L (137-145); Total Bilirubin 0.3 mg/dL (0.2-1.3); Total Protein 6.8 g/dL (6.3-8.2)
[2018-04-12 01:37] LABS: Potassium 4.5 mmol/L (3.5-5.1)
[2018-04-12 01:43] LABS: Creatine Kinase 272 U/L (55-170)
[2018-04-12 01:55] LABS: Creatine Kinase MB 1.1 ng/mL (0.0-2.4); Troponin I <0.012 ng/mL (0.000-0.034)
--- NOTE | 2018-04-12 02:05 | XR ---
EXAMINATION TYPE: XR chest 2V DATE OF EXAM: 04/12/2018 COMPARISON: 03/08/2018 HISTORY: Chest pain TECHNIQUE: Frontal and lateral views of the chest are obtained. FINDINGS: There is mild pleural thickening at the lung apices. There are some reticular infiltrate a t the right lung apex. The other lung andrew are clear. Heart and mediastinum are normal. There is no pleural effusion. There are chest leads. Bony thorax is intact. IMPRESSION: Pleural and pulmonary scarring at the lung apices without change compared to old exam. N ormal heart.
[2018-04-12] MEDS ORDERED: NITROGLYCERIN SL TABS 0.4 MG TAB SUBLINGUAL PRN (03:15)
[2018-04-12 04:26] LABS: Eosinophils # (M) 0.33 k/uL (0-0.7); Lymphocytes # (M) 5.25 k/uL (1.0-4.8); Monocytes # (M) 0.41 k/uL (0-1.0); Neutrophils # (M) 2.21 k/uL (1.3-7.7); Neutrophils % (M) 27 %; Nucleated Red Blood Cells 0 /100 WBC (0-0); Target Cells Present; Total Cells Counted 100
[2018-04-12 04:32] VITALS: RESP 18
[2018-04-12] MEDS ORDERED: NITROGLYCERIN OINT 1 INCH/GM PACKET TOPICAL SCH (06:00)
[2018-04-12 07:56] LABS: Creatine Kinase 231 U/L (55-170)
[2018-04-12 08:08] LABS: Creatine Kinase MB 1.1 ng/mL (0.0-2.4); Troponin I <0.012 ng/mL (0.000-0.034)
--- NOTE | 2018-04-12 10:38 | ECHOS ---
STRESS ECHOCARDIOGRAM DATE OF SERVICE: 04/12/2018 INDICATIONS: Chest pain. MEDICATIONS: BASELINE HEART RATE: 76 BASELINE BLOOD PRESSURE: 997/47 MAXIMUM HEART RATE: 146 MAXIMUM BLOOD PRESSURE: 149/66 85% MPHR: 140 100% MPHR: 165 METS: 10 MAXIMUM STAGE REACHED: III TOTAL EXERCISE TIME: 9 minutes CLINICAL INFORMATION: Baseline EKG shows sinus rhythm, normal axis, normal intervals. Patient exercised on Darren protocol for a total of 9 minutes achieving 10 METs, 88% of predicted maximal heart rate without chest pain or diagnostic ST-segment depression. Occasional PVCs are noted during exercise. Baseline echo shows normal left ventricular size, wall motion and systolic function. Postexercise, there is normal hyperdynamic response of all segments of myocardium noted. CONCLUSIONS: 1. Good exercise tolerance. 2. Negative stress test by EKG criteria. 3. Negative stress echo. VIOLA / EMILIANON: [id number] /
--- NOTE | 2018-04-12 10:41 | ECHOF ---
Referral Reason:cp, sob MEASUREMENTS -------- HEIGHT: 175.3 cm WEIGHT: 67.1 kg BP: 94/57 RVIDd: 3.0 cm (< 3.3) IVSd: 1.2 cm (0.6 - 1.1) LVIDd: 3.4 cm (3.9 - 5.3) LVPWd: 1.1 cm (0.6 - 1.1) IVSs: 1.6 cm LVIDs: 2.0 cm LVPWs: 1.3 cm LA Diam: 2.6 cm (2.7 - 3.8) LAESV Index (A-L): 17.40 ml/m Ao Diam: 2.8 cm (2.0 - 3.7) AV Cusp: 2.1 cm (1.5 - 2.6) MV EXCURSION: 22.777 mm (> 18.000) MV EF SLOPE: 48 mm/s (70 - 150) EPSS: 0.5 cm MV E Alex: 1.03 m/s MV DecT: 217 ms MV A Alex: 0.74 m/s MV E/A Ratio: 1.40 RAP: 5.00 mmHg RVSP: 21.42 mmHg FINDINGS -------- Sinus rhythm. This was a technically good study. The left ventricular size is normal. There is borderline concentric left ventricular hypertrophy. Overall left ventricular systolic function is normal with, an EF between 60 - 65 %. The right ventricle is normal in size. Normal LA size by volume 22+/-6 ml/m2. The right atrium is normal in size. The aortic valve is trileaflet and appears structurally normal. There is trace mitral regurgitation. Mild tricuspid regurgitation present. Right ventricular systolic pressure is normal at < 35 mmHg. Trace/mild (physiologic) pulmonic regurgitation. The aortic root size is normal. Normal inferior vena cava with normal inspiratory collapse consistent with estimated right atrial pre ssure of 5 mmHg. There is no pericardial effusion. CONCLUSIONS -------- 1. Sinus rhythm. 2. This was a technically good study. 3. The left ventricular size is normal. 4. There is borderline concentric left ventricular hypertrophy. 5. Overall left ventricular systolic function is normal with, an EF between 60 - 65 %. 6. The right ventricle is normal in size. 7. Normal LA size by volume 22+/-6 ml/m2. 8. The right atrium is normal in size. 9. The aortic valve is trileaflet and appears structurally normal. 10. There is trace mitral regurgitation. 11. Mild tricuspid regurgitation present. 12. Right ventricular systolic pressure is normal at < 35 mmHg. 13. Trace/mild (physiologic) pulmonic regurgitation. 14. The aortic root size is normal. 15. Normal inferior vena cava with normal inspiratory collapse consistent with estimated right atrial pressure of 5 mmHg. 16. There is no pericardial effusion. [employer]: Jeanne Carbone RDCS
--- NOTE | 2018-04-12 12:44 | P.CRDCN ---
History of Present Illness History of present illness: Mr. Choudhury is a pleaseant 57-year-old male past medical history significant for DVT, pneumothorax, chronic nicotine dependence and etoh use. He denies history of coronary artery disease, hypertension, diabetes mellitus or dyslipidemia. We have been asked to see him in consultation for chest pain. He states yesterday while he was doing some yard work he noticed a sharp pain in the left precordial region associated with mild shortness of breath. The pain was persistent for approximately 3 hours until he sat down to rest and then the pain seemed to improve as well as his breathing. While he was working he noted some increased sweating and racing heart as well. He denies dizziness, nausea or vomiting. He has had no further symptoms since admission and has been resting comfortably in bed. Telemetry tracings have been unremarkable. EKG reveals sinus mechanism with no acute ST or T-wave abnormalities noted. Chest xray reveals pleural and pulmonary scarring at the lung apices without change compared with exam. No acute cardiopulmonary process noted. Laboratory data reviewed, hemoglobin 13.3, platelets 220, d-dimer less than 0.17 , sodium 141, potassium 4.5, creatinine 0.7, magnesium 1.9, cardiac enzymes negative 2, proBNP 49. No daily medications. Review of Systems At the time of my exam: CONSTITUTIONAL: Denies fever. Denies chills. EYES: Denies blurred vision. Denies vision changes. Denies eye pain. EARS, NOSE, MOUTH & THROAT: Denies headache. Denies sore throat. Denies ear pain. CARDIOVASCULAR: Denies chest pain. Denies shortness of breath. Denies orthopnea. Denies PND. Denies palpitations. RESPIRATORY: Denies cough. GASTROINTESTINAL: Denies abdominal pain. Denies diarrhea. Denies constipation. Denies nausea. Denies vomiting. MUSCULOSKELETAL: Denies myalgias. INTEGUMENTARY: Denies pruitis. Denies rash. NEUROLOGIC: Denies numbness. Denies tingling. Denies weakness. PSYCHIATRIC: Denies anxiety. Denies depression. ENDOCRINE: Denies fatigue. Denies weight change. Denies polydipsia. Denies polyurina. GENITOURINARY: Denies burning, hematuria or urgency with micturation. HEMATOLOGIC: Denies history of anemia. Denies bleeding. Past Medical History Past Medical History: Deep Vein Thrombosis (DVT) Additional Past Medical History / Comment(s): "blood clots in both legs, past pneumothorax/chest tube (rt lung) stomach ulcer History of Any Multi-Drug Resistant Organisms: None Reported Past Surgical History: No Surgical Hx Reported Additional Past Surgical History / Comment(s): chest tube Past Anesthesia/Blood Transfusion Reactions: No Reported Reaction Past Psychological History: No Psychological Hx Reported Smoking Status: Current every day smoker Past Alcohol Use History: None Reported Additional Past Alcohol Use History / Comment(s): started smoking at age 20, smokes 2-4 PER DAY Past Drug Use History: None Reported Additional Drug Use History / Comment(s): patient denies alcohol use, patient currently smells of alcohol - Past Family History Father Family Medical History: Cancer Additional Family Medical History / Comment(s): pt not sure what kind of cancer his dad had Mother Family Medical History: Diabetes Mellitus, Hypertension Medications and Allergies Home Medications Medication Instructions Recorded Confirmed Type No Known Home Medications 04/12/18 04/12/18 History Allergies Allergy/AdvReac Type Severity Reaction Status Date / Time No Known Allergies Allergy Verified 04/12/18 08:35 Physical Exam Vitals: Vital Signs Temp Pulse Pulse Pulse Resp BP BP 04/12/18 12:00 97.9 F 67 70 18 110/69 04/12/18 08:00 67 66 18 04/12/18 07:15 97.6 F 66 18 94/57 04/12/18 04:19 97.8 F 67 18 119/78 04/12/18 04:00 16 04/12/18 03:49 97.1 F L 66 16 138/82 04/12/18 00:45 97.7 F 78 18 125/80 Pulse Ox 04/12/18 12:00 97 04/12/18 08:00 04/12/18 07:15 95 04/12/18 04:19 96 04/12/18 04:00 04/12/18 03:49 98 04/12/18 00:45 97 Intake and Output 04/11/18 04/12/18 04/12/18 22:59 06:59 14:59 Other: Voiding Method Toilet Toilet # Voids 1 Weight 67.2 kg 67.132 kg Blood pressure 110/69 heart rate 70 afebrile maintaining oxygen saturation on room air GENERAL: This is a 57-year-old male in no apparent distress at the time of my examination. HEENT: Head is atraumatic, normocephalic. Pupils are equal, round. Sclerae anicteric. Conjunctivae are clear. Mucous membranes of the mouth are moist. Neck is supple. There is no jugular venous distention. No carotid bruit is heard. LUNGS: Clear to auscultation no wheezes, rales or rhonchi. No chest wall tenderness is noted on palpation or with deep breathing. HEART: Regular rate and rhythm without murmurs, rubs or gallops. S1 and S2 heard. ABDOMEN: Soft, nontender. Bowel sounds are heard. No organomegaly noted. EXTREMITIES: No evidence of peripheral edema and no calf tenderness noted. VASCULAR: Radial and dorsalis pedis pulses palpated, no evidence of clubbing. NEUROLOGIC: Patient is awake, alert and oriented x3. Results 04/12/18 01:02 04/12/18 01:02 Cardiac Enzymes 04/12/18 04/12/18 04/12/18 Range/Units 01:02 01:02 06:44 AST 36 (17-59) U/L CK-MB (CK-2) 1.1 1.1 (0.0-2.4) ng/mL Troponin I <0.012 <0.012 (0.000-0.034) ng/mL Coagulation 04/12/18 Range/Units 01:02 PT 10.5 (9.0-12.0) sec APTT 25.4 (22.0-30.0) sec CBC 04/12/18 Range/Units 01:02 WBC 8.2 (3.8-10.6) k/uL RBC 3.97 L (4.30-5.90) m/uL Hgb 13.3 (13.0-17.5) gm/dL Hct 39.8 (39.0-53.0) % Plt Count 220 (150-450) k/uL Comprehensive Metabolic Panel 04/12/18 Range/Units 01:02 Sodium 141 (137-145) mmol/L Potassium 4.5 (3.5-5.1) mmol/L Chloride 109 H (98-107) mmol/L Carbon Dioxide 21 L (22-30) mmol/L BUN 8 L (9-20) mg/dL Creatinine 0.70 (0.66-1.25) mg/dL Glucose 80 (74-99) mg/dL Calcium 8.8 (8.4-10.2) mg/dL AST 36 (17-59) U/L ALT 24 (21-72) U/L Alkaline Phosphatase 62 (38-126) U/L Total Protein 6.8 (6.3-8.2) g/dL Albumin 4.2 (3.5-5.0) g/dL Current Medications Generic Name Dose Route Start Last Admin Trade Name Freq PRN Reason Stop Dose Admin Aspirin 325 mg 04/13/18 09:00 Aspirin PO DAILY DELIO Nitroglycerin 0.4 mg 04/12/18 03:15 Nitrostat SUBLINGUAL Q5M PRN Chest Pain Sodium Chloride 10 ml 04/12/18 09:00 04/12/18 10:36 Saline Flush IV 10 ml BID DELIO Administration Intake and Output 04/11/18 04/12/18 04/12/18 22:59 06:59 14:59 Other: Voiding Method Toilet Toilet # Voids 1 Weight 67.2 kg 67.132 kg Patient Weight 04/13/18 06:59 Weight 67.132 kg 04/12/18 01:02 04/12/18 01:02 Assessment and Plan Assessment: ASSESSMENT Precordial chest pain. An acute coronary event has been ruled out with no EKG evidence of ischemia and negative cardiac enzymes. Chronic nicotine dependence PLAN Obtain 2-D echocardiogram and Doppler study to assess cardiac structure and function. Perform exercise stress echocardiogram to assess for stress-induced cardiac ischemia. If stress test is normal he is stable from a cardiac perspective. Check TSH and lipid panel. Thank you kindly for this consultation. The above impression and plan of care have been discussed and directed by the signing physician. Cortney Naik, nurse practitioner, acting as scribe for signing physician.
[2018-04-12 12:52] LABS: Cholesterol 140 mg/dL (<200); HDL Cholesterol 50 mg/dL (40-60); LDL Cholesterol,Calculated 71 mg/dL (0-99); Triglycerides 93 mg/dL (<150)
[2018-04-12 15:37] VITALS: BP 118/73; PULSE 78; TEMP 98.3
[2018-04-13] MEDS ORDERED: ASPIRIN 325 MG TAB PO SCH (09:00)
--- NOTE | 2018-05-01 22:27 | HP ---
HISTORY AND PHYSICAL CHIEF COMPLAINT: 57-year-old male presents with complains of chest discomfort early in the morning present throughout the day. Mild discomfort. No similar symptoms. Mild associated dyspnea, has some sweaty diaphoresis. No nausea. Heart has been racing. Also home medicines: Floxacillin, Cipro, Levaquin, nicotine patch. ALLERGIES: Negative. REVIEW OF SYSTEMS: Fourteen point review of systems negative except for mentioned in HPI. PHYSICAL EXAMINATION: CARDIOVASCULAR: S1, S2. Lungs transmitted upper sounds. Hematology negative Homans. Psych fair mood and affect. Ophthalmologic pupils equal, round, reactive to light and accommodation. NEUROLOGIC: Alert and orient x3. GI soft. FAMILY HISTORY: Father with cancer. Mother, diabetes mellitus, hypertension. Vital signs stable. Afebrile. CARDIOVASCULAR: S1, S2. Lungs clear. GI soft. Hematology negative Homans. Psych fair mood and affect. Neurologic: Alert and oriented x3. Vascular: Normal dorsalis pedis posterior pulses radial pulses. Ophthalmological: Pupils equal, round, reactive to light and accommodation. Neurologic: Alert and oriented x3. Psych: Fair mood and affect. ASSESSMENT: Atypical chest pain, rule out myocardial infarction. Cardiology has been consulted. Once cleared from cardiac standpoint, we will discharge home. MMODL / IJN: [id number] /
== END 2018-04-12 17:18 | disposition home or self-care (01) ==
LOC: EC 00:40 → 3OBS 03:14
PROVIDERS: ADMIT Family Medicine; ATTEND Family Medicine
DX: R07.89 Other chest pain (principal); R06.02 Shortness of breath; R61 Generalized hyperhidrosis; R00.0 Tachycardia, unspecified; Z72.89 Other problems related to lifestyle; F17.210 Nicotine dependence, cigarettes, uncomplicated; Z79.2 Long term (current) use of antibiotics; Z87.09 Personal history of other diseases of the respiratory system; Z86.718 Personal history of other venous thrombosis and embolism; Z87.11 Personal history of peptic ulcer disease; Z83.3 Family history of diabetes mellitus; Z82.49 Family history of ischemic heart disease and other diseases of the circulatory system; Z80.9 Family history of malignant neoplasm, unspecified
CPT/HCPCS: 99285 ×2; 36415; 93005; 93306; 93351; 85379; 83880; 80061; 80053; 84443; 82550; 82553; 83735; 84484; 85025; 85610; 85730; 71046; G0378

== ENCOUNTER 2018-05-30 20:32 | Emergency (ER) | payer OTHER ==
--- NOTE | 2018-05-30 22:09 | XR ---
EXAMINATION TYPE: XR lumbosacral spine min 4V DATE OF EXAM: 05/30/2018 COMPARISON: NONE HISTORY: Low back pain TECHNIQUE: 5 views FINDINGS: Lumbar vertebra have normal alignment. There is slight narrowing at L5-S1 disc space. Poste rior elements are intact. There is no compression fracture. Sacroiliac joints appear normal. IMPRESSION: Lumbar spine appears normal for age. No fracture.
[2018-05-30] MEDS ORDERED: ACET/COD 300 MG/30 MG STARTER PACK 6 TAB BTL PO STA (22:17)
--- NOTE | 2018-05-30 22:17 | ED ---
Back Pain HPI - General Source: patient, RN notes reviewed Limitations: no limitations <Alexey Weiss - Last Filed: 05/30/18 22:14> <Nohemi Crawford - Last Filed: 05/31/18 22:47> - General Chief Complaint: Back Pain/Injury Stated Complaint: back pain Time Seen by Provider: 05/30/18 21:44 - History of Present Illness Initial Comments: 58-year-old male presents emergency department with chief complaint of low back pain. Patient states started 2 days ago. He states that he may have twisted wrong but is not sure. He has increased pain with twisting bending is better at rest especially laying flat. He denies any abdominal pain including nausea, vomiting, diarrhea, constipation, dysuria or hematuria. Patient states he has had problems with his back in the past but has had no prior imaging. Patient denies any symptoms that radiate down his leg denies any bowel bladder incontinence or retention. Denies any saddle anesthesias. (Alexey Weiss) - Related Data Previous Rx's Medication Instructions Recorded Cyclobenzaprine [Flexeril] 10 mg PO TID PRN #15 tab 05/30/18 Ibuprofen [Motrin] 600 mg PO Q8HR PRN #30 tab 05/30/18 Allergies Allergy/AdvReac Type Severity Reaction Status Date / Time No Known Allergies Allergy Verified 05/30/18 20:47 Review of Systems ROS Other: All systems not noted in ROS Statement are negative. <Alexey Weiss - Last Filed: 05/30/18 22:14> ROS Other: All systems not noted in ROS Statement are negative. <Nohemi Crawford - Last Filed: 05/31/18 22:47> ROS Statement: Those systems with pertinent positive or pertinent negative responses have been documented in the HPI. Past Medical History Past Medical History: Deep Vein Thrombosis (DVT) Additional Past Medical History / Comment(s): "blood clots in both legs, past pneumothorax/chest tube (rt lung) stomach ulcer History of Any Multi-Drug Resistant Organisms: None Reported Past Surgical History: No Surgical Hx Reported Additional Past Surgical History / Comment(s): chest tube Past Anesthesia/Blood Transfusion Reactions: No Reported Reaction Past Psychological History: No Psychological Hx Reported Smoking Status: Current every day smoker Past Alcohol Use History: None Reported Past Drug Use History: None Reported - Past Family History Father Family Medical History: Cancer Additional Family Medical History / Comment(s): pt not sure what kind of cancer his dad had Mother Family Medical History: Diabetes Mellitus, Hypertension <Alexey Weiss - Last Filed: 05/30/18 22:14> General Exam Limitations: no limitations General appearance: alert, in no apparent distress Neck exam: Present: normal inspection, full ROM. Absent: tenderness, meningismus, lymphadenopathy Respiratory exam: Present: normal lung sounds bilaterally. Absent: respiratory distress, wheezes, rales, rhonchi, stridor Cardiovascular Exam: Present: regular rate, normal rhythm, normal heart sounds. Absent: systolic murmur, diastolic murmur, rubs, gallop, clicks GI/Abdominal exam: Present: soft, normal bowel sounds. Absent: distended, tenderness, guarding, rebound, rigid Extremities exam: Present: other (Lower extremity strength equal bilaterally, full range of motion neurovascular intact) Back exam: Present: full ROM, tenderness (Lumbar paraspinal region), paraspinal tenderness, other (Pain with left straight leg raise). Absent: vertebral tenderness Neurological exam: Present: alert, oriented X3, CN II-XII intact, reflexes normal. Absent: motor sensory deficit Skin exam: Present: warm, dry, intact, normal color. Absent: rash <Alexey Weiss - Last Filed: 05/30/18 22:14> Vital Signs 05/30/18 05/30/18 20:44 22:30 Temperature 98.7 F 97.8 F Pulse Rate 105 H 87 Respiratory 20 16 Rate Blood Pressure 124/78 137/87 O2 Sat by Pulse 98 97 Oximetry Medical Decision Making <Alexey Weiss - Last Filed: 05/30/18 22:14> <Nohemi Crawford - Last Filed: 05/31/18 22:47> - Medical Decision Making 58-year-old male presented to emergency department for low back pain. Patient is a lumbar strain. Patient we treated with anti-inflammatories, muscle relaxers at this time. Return parameters were discussed. Patient has no red flag symptoms had no abdominal tenderness. (Alexey Weiss I was available for consultation in the emergency department. The history and physical exam were done by the Midlevel Provider. Medical decision making was done by the Midlevel Provider. The Midlevel Provider did not contact me for this patient's care. I was not directly involved in this patient's care. (Nohemi Crawford) Disposition Is patient prescribed a controlled substance at d/c from ED?: No Time of Disposition: 22:16 <Alexey Weiss - Last Filed: 05/30/18 22:14> <Nohemi Crawford - Last Filed: 05/31/18 22:47> Clinical Impression: Strain of lumbar region Disposition: HOME SELF-CARE Condition: Stable Instructions: Acute Low Back Pain (ED) Additional Instructions: Please return to the Emergency Department if symptoms worsen or any other concerns. Prescriptions: Cyclobenzaprine [Flexeril] 10 mg PO TID PRN #15 tab PRN Reason: Muscle Spasm Ibuprofen [Motrin] 600 mg PO Q8HR PRN #30 tab PRN Reason: Pain Referrals: Margaret Workman MD [Primary Care Provider] - 1-2 days
[2018-05-30 22:31] VITALS: BP 137/87; PULSE 87; RESP 16; TEMP 97.8
== END 2018-05-30 22:33 | disposition home or self-care (01) ==
LOC: EC 20:32
DX: S39.012A Strain of muscle, fascia and tendon of lower back, initial encounter (principal); M79.605 Pain in left leg; F17.200 Nicotine dependence, unspecified, uncomplicated; Z86.718 Personal history of other venous thrombosis and embolism; X50.9XXA Other and unspecified overexertion or strenuous movements or postures, initial encounter
CPT/HCPCS: 72110; 99283

== ENCOUNTER 2019-01-27 15:35 | Emergency (ER) | payer OTHER ==
--- NOTE | 2019-01-27 16:37 | ED ---
Extremity Problem HPI - General Chief complaint: Extremity Problem,Nontraumatic Stated complaint: Leg pain Time Seen by Provider: 01/27/19 15:54 Source: patient Mode of arrival: ambulatory Limitations: physical limitation - History of Present Illness Initial comments: Patient is a 58-year-old male presents emergency Department with an extremity injury. Patient reports difficulty walking with his left leg. Patient states that the pain started 3 days ago and has not resolved. Patient states the pain is exacerbated when walking and especially flexion but it is alleviated with rest. Patient reports the pain is located on the anterior aspect of the knee superior to the patella. Patient states that he has not taken any medication for pain. Patient denies any calf tenderness, numbness, tingling. Patient denies fever, swelling, erythema. Patient denies any traumatic injuries to the leg. - Related Data Previous Rx's Medication Instructions Recorded Acetaminophen [Acetaminophen ER] 650 mg PO Q6HR PRN #30 tablet.er 01/27/19 Ibuprofen [Motrin] 600 mg PO Q8HR PRN #30 tab 01/27/19 Allergies Allergy/AdvReac Type Severity Reaction Status Date / Time No Known Allergies Allergy Verified 01/27/19 16:50 Review of Systems ROS Statement: Those systems with pertinent positive or pertinent negative responses have been documented in the HPI. ROS Other: All systems not noted in ROS Statement are negative. Past Medical History Past Medical History: Deep Vein Thrombosis (DVT) Additional Past Medical History / Comment(s): "blood clots in both legs, past pneumothorax/chest tube (rt lung) stomach ulcer History of Any Multi-Drug Resistant Organisms: None Reported Past Surgical History: No Surgical Hx Reported Additional Past Surgical History / Comment(s): chest tube Past Anesthesia/Blood Transfusion Reactions: No Reported Reaction Past Psychological History: No Psychological Hx Reported Smoking Status: Current every day smoker Past Alcohol Use History: None Reported Past Drug Use History: None Reported - Past Family History Father Family Medical History: Cancer Additional Family Medical History / Comment(s): pt not sure what kind of cancer his dad had Mother Family Medical History: Diabetes Mellitus, Hypertension General Exam Limitations: no limitations General appearance: alert, in no apparent distress Head exam: Present: atraumatic, normocephalic, normal inspection Eye exam: Present: normal appearance Neck exam: Present: normal inspection Respiratory exam: Present: normal lung sounds bilaterally Cardiovascular Exam: Present: regular rate, normal rhythm, normal heart sounds Left Upper Leg exam: Present: normal inspection, full ROM Knee exam: Present: full knee extension. Absent: full ROM (Pain with flexion), tenderness (No tenderness to palpation), swelling, abrasion, ecchymosis, dislocation, posterior draw sign Lower Leg exam: Absent: tenderness, swelling, Homans' sign Ankle exam: Present: normal inspection, full ROM Foot/Toe exam: Present: normal inspection, full ROM Neurovascular tendon exam: Present: no vascular compromise. Absent: extremity cold to touch Gait: observed and limited by pain Neurological exam: Present: alert, oriented X3 Psychiatric exam: Present: normal affect, normal mood Skin exam: Present: warm, normal color Course Vital Signs 01/27/19 15:48 Temperature 97.3 F L Pulse Rate 83 Respiratory 18 Rate Blood Pressure 118/85 O2 Sat by Pulse 97 Oximetry Medical Decision Making - Medical Decision Making Patient is a 58-year-old male presents emergency Department with left knee pain. Patient was given ibuprofen to alleviate the pain. X-ray of the left knee was obtained and negative for any acute fractures or dislocations. X-ray suggestive of bone spurring back of a possible cause of the pain that has been experiencing. Patient advised to alternate between Tylenol and ibuprofen for pain control. Patient advised to follow-up with orthopedics. Patient advised to return to emergency department symptoms worsen. Case discussed with physician. Disposition Clinical Impression: Knee sprain Disposition: HOME SELF-CARE Condition: Stable Instructions (If sedation given, give patient instructions): Knee Sprain (DC) Additional Instructions: Please alternate between Tylenol and ibuprofen for pain control. Please follow- up with orthopedics. Please return to emergency department if symptoms worsen. Is patient prescribed a controlled substance at d/c from ED?: No Referrals: None,Stated [Primary Care Provider] - 1-2 days Vj Pacheco MD [STAFF PHYSICIAN] - 1-2 days Time of Disposition: 17:58
[2019-01-27] MEDS ORDERED: IBUPROFEN 400 MG TAB PO STA (16:38)
--- NOTE | 2019-01-27 17:00 | XR ---
EXAMINATION TYPE: XR knee complete LT DATE OF EXAM: 01/27/2019 COMPARISON: NONE HISTORY: Knee pain TECHNIQUE: 3 views FINDINGS: I see no fracture nor dislocation. There is spurring on the superior patella. There is no s ign of joint effusion. There is mild spurring at the tibial tubercle. IMPRESSION: Mild spurring. No fracture seen. Normal joint spaces.
[2019-01-27 18:03] VITALS: BP 123/72; PULSE 73; RESP 16; TEMP 98.5
== END 2019-01-27 18:03 | disposition home or self-care (01) ==
LOC: EC 15:35
DX: S83.92XA Sprain of unspecified site of left knee, initial encounter (principal); F17.200 Nicotine dependence, unspecified, uncomplicated; Z86.718 Personal history of other venous thrombosis and embolism
CPT/HCPCS: 99283

== ENCOUNTER 2019-06-15 14:42 | Emergency (ER) | payer OTHER ==
--- NOTE | 2019-06-15 15:18 | XR ---
EXAMINATION TYPE: XR chest 2V DATE OF EXAM: 06/15/2019 COMPARISON: 04/12/2018 HISTORY: 59-year-old male with pain and fall TECHNIQUE: PA and lateral views FINDINGS: Normal size. Aorta within normal limits. Mild hyperinflation. Right apical patchy opacity appears sim ilar. IMPRESSION: COPD. Similar patchy right apical opacity, probably pleural parenchymal scarring. Correlate for possi ble chronic sequela of prior infectious process. Given patient's increased risk for development of yong ng cancer, nonemergent follow-up contrast enhanced CT chest can better characterize these changes.
--- NOTE | 2019-06-15 15:26 | XR ---
EXAMINATION TYPE: XR shoulder complete LT DATE OF EXAM: 06/15/2019 COMPARISON: NONE HISTORY: pain, fall TECHNIQUE: Three views are submitted. FINDINGS: The osseous structures are intact. There is no acute fracture or dislocation. Left apical pleural th ickening. Diffuse osteopenia. Arthropathy of the AC joint. IMPRESSION: 1. No acute process.
--- NOTE | 2019-06-15 15:49 | ED ---
General Adult HPI - General Chief complaint: Extremity Injury, Upper Stated complaint: Fall Time Seen by Provider: 06/15/19 14:45 Source: patient, RN notes reviewed, old records reviewed Mode of arrival: ambulatory Limitations: no limitations - History of Present Illness Initial comments: 59-year-old male patient with the chief complaint of fall which occurred yesterday. Patient reports that he has an arthritic left knee which sometimes makes walking difficult. Patient reports yesterday when he was in bathroom he stumbled, fell 4, catching himself with his arms. Patient denies use of blood thinners. Denies any trauma to head or neck. Patient to complaint is left shoulder pain. Denies any other complaints this time. Systemic: Pt denies fatigue, fever/chills, rash. Pt denies weakness, night sweats, weight loss. Neuro: Pt denies headache, visual disturbances, syncope or pre-syncope. HEENT: Pt denies ocular discharge or irritation, otalgia, rhinorrhea, pharyngitis or notable lymphadenopathy. Cardiopulmonary: Pt denies chest pain, SOB, heart palpitations, dyspnea on exertion. Abdominal/GI: Pt denies abdominal pain, n/v/d. : Pt denies dysuria, burning w/ urination, frequency/urgency. Denies new onset urinary or bowel incontinence. MSK: Pt denies myalgia, loss of strength or function in extremities. Neuro: Pt denies new onset weakness, paresthesias. - Related Data Previous Rx's Medication Instructions Recorded Acetaminophen [Acetaminophen ER] 650 mg PO Q6HR PRN #30 tablet.er 01/27/19 Ibuprofen [Motrin] 600 mg PO Q8HR PRN #30 tab 01/27/19 Allergies Allergy/AdvReac Type Severity Reaction Status Date / Time No Known Allergies Allergy Verified 06/15/19 14:45 Review of Systems ROS Statement: Those systems with pertinent positive or pertinent negative responses have been documented in the HPI. ROS Other: All systems not noted in ROS Statement are negative. Past Medical History Past Medical History: Deep Vein Thrombosis (DVT) Additional Past Medical History / Comment(s): "blood clots in both legs, past pneumothorax/chest tube (rt lung) stomach ulcer History of Any Multi-Drug Resistant Organisms: None Reported Past Surgical History: No Surgical Hx Reported Additional Past Surgical History / Comment(s): chest tube Past Anesthesia/Blood Transfusion Reactions: No Reported Reaction Past Psychological History: No Psychological Hx Reported Smoking Status: Current every day smoker Past Alcohol Use History: Daily Past Drug Use History: None Reported - Past Family History Father Family Medical History: Cancer Additional Family Medical History / Comment(s): pt not sure what kind of cancer his dad had Mother Family Medical History: Diabetes Mellitus, Hypertension General Exam - General Exam Comments Initial Comments: Constitutional: NAD, AOX3, Pt has pleasant affect. HEENT: NC/AT, trachea midline, neck supple, no lymphadenopathy. Posterior pharynx non erythematous, without exudates. External ears appear normal, without discharge. Mucous membranes moist. Eyes PERRLA, EOM intact. There is no scleral icterus. No pallor noted. Cardiopulmonary: RRR, no murmurs, rubs or gallops, no JVD noted. Lungs CTAB in anterior and posterior andrew. No peripheral edema. Abdominal exam: Abdomen soft and non-distended. Abdomen non-tender to palpation in all 4 quadrants. Bowel sounds active in LLQ. No hepatosplenomegaly. No ecchymosis Neuro: CN II-XII grossly intact. No nuchal rigidity. No raccon eyes, no adair sign, no hemotympanum. No cervical spinal tenderness. MSK: Left anterior shoulder mildly tender to palpation. Active range of motion intact. Distal pulses intact and equal. Neurovascularly intact. No posterior calf tenderness bilaterally, homans sign negative bilaterally. Posterior tibialis and radial pulse +2 bilaterally. Sensation intact in upper and lower extremities. Full active ROM in upper and lower extremities, 5/5 stregnth. Limitations: no limitations Course Vital Signs 06/15/19 14:43 Temperature 97.5 F L Pulse Rate 107 H Respiratory 20 Rate Blood Pressure 127/85 O2 Sat by Pulse 99 Oximetry Medical Decision Making - Medical Decision Making 59-year-old male patient with the chief complaint of fall which occurred yesterday. Patient reports that he has an arthritic left knee which sometimes makes walking difficult. Patient reports yesterday when he was in bathroom he stumbled, fell 4, catching himself with his arms. Patient denies use of blood thinners. Denies any trauma to head or neck. Patient to complaint is left shoulder pain. Denies any other complaints this time. Patient vital signs stable, afebrile. Physical exam displayed: Left anterior shoulder mildly tender to palpation. Active range of motion intact. Distal pulses intact and equal. Neurovascularly intact. Plain film of shoulder displayed no acute process. Chest x-ray revealed COPD, similar patchy right apical opacity probably pleural parenchymal scarring. Correlate for possible chronic sequela of prior infectious process. Recommendation of outpatient nonemergent CT. These findings are when patient depth. Patient will be discharged with referral to primary care provider and orthopedic consult shoulder pain persists. Case discussed with Dr. Watt. Disposition Clinical Impression: Sprain of shoulder, left Disposition: HOME SELF-CARE Condition: Stable Instructions (If sedation given, give patient instructions): Shoulder Sprain (ED) Additional Instructions: Patient to adhere to previously discussed treatment plan and will take medication(s) as directed. Patient to follow up with PCP in 1-2 days. Patient to return to ED if symptoms do not improve. Use Tylenol and Motrin for pain in left shoulder. Follow-up with primary care provider for outpatient CT of chest. Follow-up with orthopedic consult if pain shoulder persists. Return to ER if condition worsens. Is patient prescribed a controlled substance at d/c from ED?: No Referrals: None,Stated [Primary Care Provider] - 1-2 days Ac Cabello DO [Medical Doctor] - 1-2 days [facility] [NON-[facility]FF] - 1-2 days
[2019-06-15 16:01] VITALS: BP 120/87; PULSE 84; RESP 16; TEMP 98.7
== END 2019-06-15 15:59 | disposition home or self-care (01) ==
LOC: EC 14:42
DX: S43.402A Unspecified sprain of left shoulder joint, initial encounter (principal); J44.9 Chronic obstructive pulmonary disease, unspecified; M17.12 Unilateral primary osteoarthritis, left knee; F17.200 Nicotine dependence, unspecified, uncomplicated; W01.0XXA Fall on same level from slipping, tripping and stumbling without subsequent striking against object, initial encounter; Y92.002 Bathroom of unspecified non-institutional (private) residence as the place of occurrence of the external cause
CPT/HCPCS: 71046; 99284

== ENCOUNTER 2019-06-16 20:08 | Emergency (ER) | payer OTHER ==
[2019-06-16 20:29] VITALS: BP 151/93; PULSE 75; RESP 18; TEMP 97.7
--- NOTE | 2019-06-16 21:26 | ED ---
Upper Extremity HPI - General Chief Complaint: Extremity Injury, Upper Stated Complaint: left arm pain Time Seen by Provider: 06/16/19 21:06 Source: patient Mode of arrival: ambulatory Limitations: no limitations - History of Present Illness Initial Comments: 59yo male presenting for left arm bruise. Patient states that he fell and was evaluated emergency department after he states he did strike his left upper arm. Patient states he woke up and noticed that the bruise turned yellow. He states he does not know if this was normal presents emergency for evaluation. Patient denies any masses arm arm swelling numbness tingling or loss sensation or other complaints. Patient denies repeat fall. Remaining review systems negative upon arrival patient appears well no signs of acute distress. - Related Data Previous Rx's Medication Instructions Recorded Acetaminophen [Acetaminophen ER] 650 mg PO Q6HR PRN #30 tablet.er 01/27/19 Ibuprofen [Motrin] 600 mg PO Q8HR PRN #30 tab 01/27/19 Allergies Allergy/AdvReac Type Severity Reaction Status Date / Time No Known Allergies Allergy Verified 06/16/19 20:30 Review of Systems ROS Statement: Those systems with pertinent positive or pertinent negative responses have been documented in the HPI. ROS Other: All systems not noted in ROS Statement are negative. Past Medical History Past Medical History: Deep Vein Thrombosis (DVT) Additional Past Medical History / Comment(s): "blood clots in both legs, past pneumothorax/chest tube (rt lung) stomach ulcer History of Any Multi-Drug Resistant Organisms: None Reported Past Surgical History: No Surgical Hx Reported Additional Past Surgical History / Comment(s): chest tube Past Anesthesia/Blood Transfusion Reactions: No Reported Reaction Past Psychological History: No Psychological Hx Reported Smoking Status: Current every day smoker Past Alcohol Use History: Daily Past Drug Use History: None Reported - Past Family History Father Family Medical History: Cancer Additional Family Medical History / Comment(s): pt not sure what kind of cancer his dad had Mother Family Medical History: Diabetes Mellitus, Hypertension General Exam - General Exam Comments Initial Comments: General: The patient is awake and alert, in no distress, and does not appear acutely ill. Eye: Pupils are equal, round and reactive to light, extra-ocular movements are intact. No nystagmus. There is normal conjunctiva bilaterally. No signs of icterus. Ears, nose, mouth and throat: There are moist mucous membranes and no oral lesions. Neck: The neck is supple, there is no tenderness or JVD. Cardiovascular: There is a regular rate and rhythm. No murmur, rub or gallop is appreciated. Respiratory: Lungs are clear to auscultation, respirations are non-labored, breath sounds are equal. No wheezes, stridor, rales, or rhonchi. Musculoskeletal: Normal ROM, no tenderness. Strength 5/5. Sensation intact. Pulses equal bilaterally 2+. Neurological: A&O x 3. CN II-XII intact grossly, There are no obvious motor or sensory deficits. Coordination appears grossly intact. Speech is normal. Skin: Skin is warm and dry and no rashes. Ecchymosis of the inner aspect of the left arm noted no masses. Full range of motion of the upper extremities equal comparison bilaterally with full sensation. Radial pulses compressible compartments. Psychiatric: Cooperative Limitations: no limitations Course Vital Signs 06/16/19 20:27 Temperature 97.7 F Pulse Rate 75 Respiratory 18 Rate Blood Pressure 151/93 O2 Sat by Pulse 100 Oximetry Medical Decision Making - Medical Decision Making Well-appearing 59 yo male presenting for bruise of the left arm. Patient has known trauma to the area. Patient had no osseous injury on imaging studies. Patient states she was concerned the color change of the bruise ecchymosis appropriate given the physical examination and history of trauma. No other concerning findings of physical examination. I reassured patient instructed patient follow primary care provider and patient is discharged appearing well. Disposition Clinical Impression: Traumatic ecchymosis of left upper arm, Fall Disposition: HOME SELF-CARE Condition: Good Instructions (If sedation given, give patient instructions): R.I.C.E. Treatment (ED) Additional Instructions: Please use medication as discussed. Please follow-up with family doctor in the next 2 days, and orthopedic surgery in the next week. Please return to emergency room if the symptoms increase or worsen or for any other concerns. Is patient prescribed a controlled substance at d/c from ED?: No Referrals: None,Stated [Primary Care Provider] - 1-2 days cA Cabello DO [Medical Doctor] - 1-2 days Time of Disposition: 21:26
== END 2019-06-16 22:07 | disposition home or self-care (01) ==
LOC: EC 20:08
DX: S40.022A Contusion of left upper arm, initial encounter (principal); F17.200 Nicotine dependence, unspecified, uncomplicated; W18.30XA Fall on same level, unspecified, initial encounter
CPT/HCPCS: 99283

== ENCOUNTER 2019-09-21 23:15 | Emergency (ER) | payer OTHER ==
[2019-09-21 23:23] VITALS: TEMP 97.8
[2019-09-21] MEDS ORDERED: predniSONE 50 MG TAB PO STA (23:48)
[2019-09-21] MEDS ORDERED: guaiFENesin-DM 600/30MG 1 EACH TAB.ER.12H PO STA (23:48)
[2019-09-21] MEDS ORDERED: IPRATROPIUM-ALBUTEROL 3 ML NEB INHALATION STA (23:48)
[2019-09-21] MEDS ORDERED: AZITHROMYCIN 500 MG TAB PO STA (23:50)
--- NOTE | 2019-09-22 00:29 | XR ---
EXAMINATION TYPE: XR chest 2V DATE OF EXAM: 09/22/2019 COMPARISON: 06/15/2019 HISTORY: Short of breath TECHNIQUE: 2 views FINDINGS: Heart is normal. There is some pleural and pulmonary scarring at the lung apices. The other lung andrew are clear. There are no hilar masses. Diaphragm is normal. IMPRESSION: Bilateral upper lobe mild pulmonary scarring unchanged. Normal heart.
--- NOTE | 2019-09-22 00:39 | ED ---
URI HPI - General Chief Complaint: Upper Respiratory Infection Stated Complaint: Cough Time Seen by Provider: 09/21/19 23:38 Source: patient Mode of arrival: ambulatory Limitations: no limitations - History of Present Illness Initial Comments: 59-year-old male patient presents to the emergency department today for evaluation of cough and shortness of breath. Patient states symptoms started approximately 2 weeks ago with nasal congestion, nasal drainage, sore throat, and cough. Patient states other symptoms have improved however his cough has persisted. Patient states that coughing causes his chest to hurt. Denies any production of sputum or any hemoptysis. He denies any fever or chills. Does admit to smoking cigarettes. Patient denies any recent rash, abdominal pain, nausea, vomiting, diarrhea, constipation, back pain, numbness, tingling, dizziness, weakness, hematuria, dysuria, urinary urgency, urinary frequency, headache, visual changes, or any other complaints. - Related Data Previous Rx's Medication Instructions Recorded Acetaminophen [Acetaminophen ER] 650 mg PO Q6HR PRN #30 tablet.er 01/27/19 Ibuprofen [Motrin] 600 mg PO Q8HR PRN #30 tab 01/27/19 Albuterol Sulfate [Proair Hfa] 1 - 2 puff INHALATION Q6HR PRN #1 09/22/19 inhaler Azithromycin 250 mg PO DAILY 4 Days #4 tab 09/22/19 guaiFENesin-DM 600/30MG [Mucinex 1 each PO Q12HR #10 tab.er.12h 09/22/19 Dm] predniSONE 50 mg PO DAILY #5 tablet 09/22/19 Allergies Allergy/AdvReac Type Severity Reaction Status Date / Time No Known Allergies Allergy Verified 09/21/19 23:23 Review of Systems ROS Statement: Those systems with pertinent positive or pertinent negative responses have been documented in the HPI. ROS Other: All systems not noted in ROS Statement are negative. Past Medical History Past Medical History: Deep Vein Thrombosis (DVT) Additional Past Medical History / Comment(s): "blood clots in both legs, past pneumothorax/chest tube (rt lung) stomach ulcer History of Any Multi-Drug Resistant Organisms: None Reported Past Surgical History: No Surgical Hx Reported Additional Past Surgical History / Comment(s): chest tube Past Anesthesia/Blood Transfusion Reactions: No Reported Reaction Past Psychological History: No Psychological Hx Reported Smoking Status: Current every day smoker Past Alcohol Use History: Daily Past Drug Use History: None Reported - Past Family History Father Family Medical History: Cancer Additional Family Medical History / Comment(s): pt not sure what kind of cancer his dad had Mother Family Medical History: Diabetes Mellitus, Hypertension General Exam Limitations: no limitations General appearance: alert, in no apparent distress, other (This is a well- developed, well-nourished adult male patient in no acute distress. Vital signs upon presentation are temperature 97.8F, pulse 98, respirations 20, blood pressure 127/95, pulse ox 98% on room air.) Eye exam: Present: normal appearance, PERRL, EOMI. Absent: scleral icterus, conjunctival injection, periorbital swelling ENT exam: Present: normal exam, normal oropharynx, mucous membranes moist Respiratory exam: Present: decreased breath sounds (Bilateral). Absent: respiratory distress, wheezes, rales, rhonchi, stridor Cardiovascular Exam: Present: regular rate, normal rhythm, normal heart sounds. Absent: systolic murmur, diastolic murmur, rubs, gallop, clicks GI/Abdominal exam: Present: soft, normal bowel sounds. Absent: distended, tenderness, guarding, rebound, rigid Neurological exam: Present: alert, oriented X3, CN II-XII intact Psychiatric exam: Present: normal affect, normal mood Skin exam: Present: warm, dry, intact, normal color. Absent: rash Course Vital Signs 09/21/19 09/22/19 09/22/19 23:22 00:13 00:23 Temperature 97.8 F Pulse Rate 98 98 98 Respiratory 20 Rate Blood Pressure 127/95 O2 Sat by Pulse 98 Oximetry Medical Decision Making - Medical Decision Making 59-year-old male patient presented to the emergency department today for evaluation of cough and shortness of breath. Physical examination revealed decreased lung sounds bilateral. He is afebrile with normal vital signs. Chest x-ray shows no acute abnormalities. Patient symptoms are consistent with acute bronchitis. To be discharged with prescriptions for azithromycin, prednisone, Provera, and Mucinex. He is instructed to follow-up with his primary care physician for recheck in 1-2 days. Return parameters were discussed in detail. He verbalizes understanding and agrees with this plan. Disposition Clinical Impression: Acute bronchitis, COPD (chronic obstructive pulmonary disease) Disposition: HOME SELF-CARE Condition: Good Instructions (If sedation given, give patient instructions): Acute Bronchitis (ED), COPD (Chronic Obstructive Pulmonary Disease) (ED) Additional Instructions: Increase fluids. Take medications as directed. Follow-up through primary care physician for recheck in 1-2 days. Return to the emergency department immediately for any new, worsening, or concerning symptoms. Prescriptions: Azithromycin 250 mg PO DAILY 4 Days #4 tab guaiFENesin-DM 600/30MG [Mucinex Dm] 1 each PO Q12HR #10 tab.er.12h predniSONE 50 mg PO DAILY #5 tablet Albuterol Sulfate [Proair Hfa] 1 - 2 puff INHALATION Q6HR PRN #1 inhaler PRN Reason: Shortness Of Breath Is patient prescribed a controlled substance at d/c from ED?: No Referrals: [facility] [NON-STAFF] - 1-2 days Time of Disposition: 00:39
[2019-09-22 00:53] VITALS: BP 115/82; PULSE 64; RESP 18
== END 2019-09-22 00:53 | disposition home or self-care (01) ==
LOC: EC 23:15
DX: J20.9 Acute bronchitis, unspecified (principal); J44.9 Chronic obstructive pulmonary disease, unspecified; F17.200 Nicotine dependence, unspecified, uncomplicated; Z86.718 Personal history of other venous thrombosis and embolism
CPT/HCPCS: 94640; 71046; 99283; J7512

== ENCOUNTER 2020-02-13 17:05 | Emergency (ER) | payer OTHER ==
[2020-02-13 17:10] VITALS: BP 119/82; PULSE 97; RESP 18; TEMP 98.5
--- NOTE | 2020-02-13 17:29 | ED ---
ENT HPI - General Chief complaint: ENT Stated complaint: Swelling by ear Time Seen by Provider: 02/13/20 17:12 Source: patient Mode of arrival: ambulatory Limitations: no limitations - History of Present Illness Initial comments: Patient is 59-year-old male presenting to the emergency department chief complaint of right ear swelling. Patient reports this began yesterday when his son discomfort behind his right ear. Patient reports or swelling in the region without any radiation of the pain. Patient reports taking 2 Tylenol with no significant department symptoms. Patient denies any pain with tugging of the auricle. Patient denies any drainage from the right ear. Denies any changes to hearing. Denies illnesses fever or chills. Denies any headaches nausea vomiting or diarrhea. Denies any dysphagia, odontophagia any visual changes. - Related Data Previous Rx's Medication Instructions Recorded Acetaminophen [Acetaminophen ER] 650 mg PO Q6HR PRN #30 tablet.er 01/27/19 Ibuprofen [Motrin] 600 mg PO Q8HR PRN #30 tab 01/27/19 Albuterol Sulfate [Proair Hfa] 1 - 2 puff INHALATION Q6HR PRN #1 09/22/19 inhaler Azithromycin 250 mg PO DAILY 4 Days #4 tab 09/22/19 guaiFENesin-DM 600/30MG [Mucinex 1 each PO Q12HR #10 tab.er.12h 09/22/19 Dm] predniSONE 50 mg PO DAILY #5 tablet 09/22/19 Allergies Allergy/AdvReac Type Severity Reaction Status Date / Time No Known Allergies Allergy Verified 02/13/20 17:10 Review of Systems ROS Statement: Those systems with pertinent positive or pertinent negative responses have been documented in the HPI. ROS Other: All systems not noted in ROS Statement are negative. Past Medical History Past Medical History: Deep Vein Thrombosis (DVT) Additional Past Medical History / Comment(s): "blood clots in both legs, past pneumothorax/chest tube (rt lung) stomach ulcer History of Any Multi-Drug Resistant Organisms: None Reported Past Surgical History: No Surgical Hx Reported Additional Past Surgical History / Comment(s): chest tube Past Anesthesia/Blood Transfusion Reactions: No Reported Reaction Past Psychological History: No Psychological Hx Reported Smoking Status: Current every day smoker Past Alcohol Use History: Occasional Past Drug Use History: None Reported - Past Family History Father Family Medical History: Cancer Additional Family Medical History / Comment(s): pt not sure what kind of cancer his dad had Mother Family Medical History: Diabetes Mellitus, Hypertension General Exam Limitations: no limitations General appearance: alert, in no apparent distress Head exam: Present: atraumatic, normocephalic, normal inspection Eye exam: Present: normal appearance, PERRL, EOMI Pupils: Present: normal accommodation ENT exam: Present: normal exam, normal oropharynx, mucous membranes moist, TM's normal bilaterally (Unable to visualize bilateral tympanic membranes due to cerumen impaction bilaterally.), normal external ear exam (Cerumen impaction noted. No pain with pulling on the right auricle. No signs of swelling or erythema around the mastoid region. No posterior radicular lymph nodes noted. No signs of otitis media.) Neck exam: Present: normal inspection, full ROM Respiratory exam: Present: normal lung sounds bilaterally. Absent: respiratory distress, wheezes Cardiovascular Exam: Present: regular rate, normal rhythm, normal heart sounds Extremities exam: Present: normal inspection, full ROM Back exam: Present: normal inspection, full ROM Neurological exam: Present: alert, oriented X3 Psychiatric exam: Present: normal affect, normal mood Skin exam: Present: warm, dry, intact, normal color Course Vital Signs 02/13/20 17:08 Temperature 98.5 F Pulse Rate 97 Respiratory 18 Rate Blood Pressure 119/82 O2 Sat by Pulse 100 Oximetry Medical Decision Making - Medical Decision Making Patient is a 59-year-old male presenting to emergency Department with chief complaint of right ear swelling. Neck exam no signs of swelling were noted on the posterior reticular region. No signs of mastoiditis, otitis externa or otitis media noted. CT imaging offered to the patient, he declined. Return parameters were thoroughly discussed with patient is understanding and agreeable. Patient advised to follow with PCP. Case discussed with physician. Disposition Clinical Impression: Right ear pain Disposition: HOME SELF-CARE Condition: Stable Instructions (If sedation given, give patient instructions): Earache (ED) Additional Instructions: Return to emergency department if symptoms worsen. Follow up with her primary care. Is patient prescribed a controlled substance at d/c from ED?: No Referrals: None,Stated [Primary Care Provider] - 1-2 days Time of Disposition: 17:29
== END 2020-02-13 17:41 | disposition home or self-care (01) ==
LOC: EC 17:05
DX: H61.23 Impacted cerumen, bilateral (principal); M79.89 Other specified soft tissue disorders; F17.200 Nicotine dependence, unspecified, uncomplicated
CPT/HCPCS: 99283

== ENCOUNTER 2021-04-19 23:02 | Emergency (ER) | payer OTHER ==
[2021-04-19 23:09] VITALS: BP 145/89; PULSE 98; RESP 18; TEMP 97.7
[2021-04-19] MEDS ORDERED: ONDANSETRON 4 MG/2 ML VIAL IVP STA (23:32)
[2021-04-19] MEDS ORDERED: SODIUM CHLORIDE 0.9% 1,000 ML IV STA (23:32)
[2021-04-19 23:52] LABS: Basophils # (A) 0.1 k/uL (0-0.2); Basophils % (A) 1 %; Eosinophils # (A) 0.2 k/uL (0-0.7); Eosinophils % (A) 2 %; Lymphocytes # (A) 4.8 k/uL (1.0-4.8); Lymphocytes % (A) 57 %; MCHC 34.9 g/dL (31.0-37.0); MCV 103.3 fL (80.0-100.0); Macrocytosis Slight; Mean Platelet Volume 7.8; Monocytes # (A) 0.4 k/uL (0-1.0); Monocytes % (A) 5 %; Neutrophils # (A) 2.7 k/uL (1.3-7.7); Neutrophils % (A) 32 %; Platelet Count 247 k/uL (150-450); RBC 4.16 m/uL (4.30-5.90); RDW 12.9 % (11.5-15.5); WBC 8.4 k/uL (3.8-10.6)
--- NOTE | 2021-04-19 23:53 | ED ---
General Adult HPI - General Chief complaint: Nausea/Vomiting/Diarrhea Stated complaint: NVD Time Seen by Provider: 04/19/21 23:11 Source: patient Mode of arrival: ambulatory - History of Present Illness Initial comments: 60 year-old male patient presents to the emergency department for evaluation of vomiting and abdominal pain. States symptoms started earlier today. States he shaw s not been able to eat or drink. States he has been having low back pain for the last 3-4 days. Denies radiation down the legs. Denies numbness or tingling. Denies loss of bowel or bladder control. No injury. States he does feel feverish, his face gets hot. States he does not have any medical problems. Does not see a doctor. Does admit to drinking alcohol today. Patient denies any recent rash, cough, shortness of breath, chest pain, dizziness, weakness, hematuria, dysuria, urinary urgency, urinary frequency, headache, visual changes, or any other complaints. - Related Data Previous Rx's Medication Instructions Recorded Acetaminophen [Acetaminophen ER] 650 mg PO Q6HR PRN #30 tablet.er 01/27/19 Ibuprofen [Motrin] 600 mg PO Q8HR PRN #30 tab 01/27/19 Albuterol Sulfate [Proair Hfa] 1 - 2 puff INHALATION Q6HR PRN #1 09/22/19 inhaler Azithromycin 250 mg PO DAILY 4 Days #4 tab 09/22/19 guaiFENesin-DM 600/30MG [Mucinex 1 each PO Q12HR #10 tab.er.12h 09/22/19 Dm] predniSONE 50 mg PO DAILY #5 tablet 09/22/19 Ondansetron [Zofran ODT] 4 mg PO Q8HR PRN #10 tab 04/20/21 Allergies Allergy/AdvReac Type Severity Reaction Status Date / Time No Known Allergies Allergy Verified 04/19/21 23:09 Review of Systems ROS Statement: Those systems with pertinent positive or pertinent negative responses have been documented in the HPI. ROS Other: All systems not noted in ROS Statement are negative. Past Medical History Past Medical History: Deep Vein Thrombosis (DVT) Additional Past Medical History / Comment(s): "blood clots in both legs, past pneumothorax/chest tube (rt lung) stomach ulcer History of Any Multi-Drug Resistant Organisms: None Reported Past Surgical History: No Surgical Hx Reported Additional Past Surgical History / Comment(s): chest tube Past Anesthesia/Blood Transfusion Reactions: No Reported Reaction Past Psychological History: No Psychological Hx Reported Smoking Status: Current every day smoker Past Alcohol Use History: Daily Past Drug Use History: None Reported - Past Family History Father Family Medical History: Cancer Additional Family Medical History / Comment(s): pt not sure what kind of cancer his dad had Mother Family Medical History: Diabetes Mellitus, Hypertension General Exam General appearance: alert, in no apparent distress, other (Social well- developed, well-nourished, thin appearing adult male patient in no acute distress. Vital signs upon presentation are temperature 97.7F, pulse 98, respirations 18, blood pressure 145/89, pulse ox 97% on room air.) Eye exam: Present: normal appearance, PERRL, EOMI. Absent: scleral icterus, conjunctival injection, periorbital swelling ENT exam: Present: normal exam, normal oropharynx, mucous membranes moist Respiratory exam: Present: normal lung sounds bilaterally. Absent: respiratory distress, wheezes, rales, rhonchi, stridor Cardiovascular Exam: Present: regular rate, normal rhythm, normal heart sounds. Absent: systolic murmur, diastolic murmur, rubs, gallop, clicks GI/Abdominal exam: Present: soft, normal bowel sounds. Absent: distended, tenderness, guarding, rebound, rigid Neurological exam: Present: alert, oriented X3, CN II-XII intact Psychiatric exam: Present: normal affect, normal mood Skin exam: Present: warm, dry, intact, normal color. Absent: rash Course Vital Signs 04/19/21 23:05 Temperature 97.7 F Pulse Rate 98 Respiratory 18 Rate Blood Pressure 145/89 O2 Sat by Pulse 97 Oximetry Medical Decision Making - Medical Decision Making 60-year-old male patient presents to the emergency department today for evaluation of abdominal pain and vomiting. Physical examination did reveal left lower quadrant tenderness. Labs reviewed and did reveal alcohol level 258. He did have mildly elevated lipase. CT abdomen and pelvis was negative. I did discuss findings and results with him. He was given 1500 mL of IV fluid. He is instructed to maintain clear liquid diet over the next 1-2 days. Take nausea medication as directed. Follow up with his primary care physician for recheck in 1-2 days. Return parameters were discussed in detail. He verbalizes understanding and agrees with this plan. Attending Dr. Martin. - Lab Data Result diagrams: 04/19/21 23:37 04/19/21 23:37 Lab Results 04/19/21 04/19/21 04/19/21 Range/Units 23:37 23:37 23:37 WBC 8.4 (3.8-10.6) k/uL RBC 4.16 L (4.30-5.90) m/uL Hgb 15.0 (13.0-17.5) gm/dL Hct 43.0 (39.0-53.0) % MCV 103.3 H (80.0-100.0) fL MCH 36.0 H (25.0-35.0) pg MCHC 34.9 (31.0-37.0) g/dL RDW 12.9 (11.5-15.5) % Plt Count 247 (150-450) k/uL MPV 7.8 Neutrophils % 32 % Lymphocytes % 57 % Monocytes % 5 % Eosinophils % 2 % Basophils % 1 % Neutrophils # 2.7 (1.3-7.7) k/uL Lymphocytes # 4.8 (1.0-4.8) k/uL Monocytes # 0.4 (0-1.0) k/uL Eosinophils # 0.2 (0-0.7) k/uL Basophils # 0.1 (0-0.2) k/uL Macrocytosis Slight Sodium 138 (137-145) mmol/L Potassium 3.8 (3.5-5.1) mmol/L Chloride 104 (98-107) mmol/L Carbon Dioxide 20 L (22-30) mmol/L Anion Gap 14 mmol/L BUN 6 L (9-20) mg/dL Creatinine 0.77 (0.66-1.25) mg/dL Est GFR (CKD-EPI)AfAm >90 (>60 ml/min/1.73 sqM) Est GFR (CKD-EPI)NonAf >90 (>60 ml/min/1.73 sqM) Glucose 123 H (74-99) mg/dL Plasma Lactic Acid Adria (0.7-2.0) mmol/L Calcium 9.3 (8.4-10.2) mg/dL Total Bilirubin 0.4 (0.2-1.3) mg/dL AST 63 H (17-59) U/L ALT 24 (4-49) U/L Alkaline Phosphatase 74 (38-126) U/L Total Protein 7.1 (6.3-8.2) g/dL Albumin 4.4 (3.5-5.0) g/dL Lipase 563 H (23-300) U/L Urine Color Light Yellow Urine Appearance Clear (Clear) Urine pH 5.0 (5.0-8.0) Ur Specific Burson 1.005 (1.001-1.035) Urine Protein Negative (Negative) Urine Glucose (UA) Negative (Negative) Urine Ketones Negative (Negative) Urine Blood Trace H (Negative) Urine Nitrite Negative (Negative) Urine Bilirubin Negative (Negative) Urine Urobilinogen <2.0 (<2.0) mg/dL Ur Leukocyte Esterase Negative (Negative) Urine RBC <1 (0-5) /hpf Urine WBC <1 (0-5) /hpf Serum Alcohol 258 H* mg/dL 04/19/21 Range/Units 23:37 WBC (3.8-10.6) k/uL RBC (4.30-5.90) m/uL Hgb (13.0-17.5) gm/dL Hct (39.0-53.0) % MCV (80.0-100.0) fL MCH (25.0-35.0) pg MCHC (31.0-37.0) g/dL RDW (11.5-15.5) % Plt Count (150-450) k/uL MPV Neutrophils % % Lymphocytes % % Monocytes % % Eosinophils % % Basophils % % Neutrophils # (1.3-7.7) k/uL Lymphocytes # (1.0-4.8) k/uL Monocytes # (0-1.0) k/uL Eosinophils # (0-0.7) k/uL Basophils # (0-0.2) k/uL Macrocytosis Sodium (137-145) mmol/L Potassium (3.5-5.1) mmol/L Chloride (98-107) mmol/L Carbon Dioxide (22-30) mmol/L Anion Gap mmol/L BUN (9-20) mg/dL Creatinine (0.66-1.25) mg/dL Est GFR (CKD-EPI)AfAm (>60 ml/min/1.73 sqM) Est GFR (CKD-EPI)NonAf (>60 ml/min/1.73 sqM) Glucose (74-99) mg/dL Plasma Lactic Acid Adria 1.2 (0.7-2.0) mmol/L Calcium (8.4-10.2) mg/dL Total Bilirubin (0.2-1.3) mg/dL AST (17-59) U/L ALT (4-49) U/L Alkaline Phosphatase (38-126) U/L Total Protein (6.3-8.2) g/dL Albumin (3.5-5.0) g/dL Lipase (23-300) U/L Urine Color Urine Appearance (Clear) Urine pH (5.0-8.0) Ur Specific Burson (1.001-1.035) Urine Protein (Negative) Urine Glucose (UA) (Negative) Urine Ketones (Negative) Urine Blood (Negative) Urine Nitrite (Negative) Urine Bilirubin (Negative) Urine Urobilinogen (<2.0) mg/dL Ur Leukocyte Esterase (Negative) Urine RBC (0-5) /hpf Urine WBC (0-5) /hpf Serum Alcohol mg/dL - Radiology Data Radiology results: report reviewed, image reviewed Disposition Clinical Impression: Pancreatitis, Alcohol intoxication Disposition: HOME SELF-CARE Condition: Good Instructions (If sedation given, give patient instructions): Pancreatitis (ED), Alcohol Intoxication (ED) Additional Instructions: Clear liquid diet for the next 24 hours. Take nausea medication as needed. Follow up with the GI specialist for further evaluation. Obtain a primary care physician. One has been recommended for you. Return to the emergency department for any new, worsening, or concerning symptoms. Prescriptions: Ondansetron [Zofran ODT] 4 mg PO Q8HR PRN #10 tab PRN Reason: Nausea Is patient prescribed a controlled substance at d/c from ED?: No Referrals: None,Stated [Primary Care Provider] - 1-2 days Time of Disposition: 00:54
[2021-04-20 00:06] LABS: Appearance,Urine Clear (Clear); Bilirubin,Urine Negative (Negative); Blood,Urine Trace (Negative); Color,Urine Light Yellow; Glucose,Urine (UA) Negative (Negative); Ketones,Urine Negative (Negative); Leukocyte Esterase,Urine Negative (Negative); Nitrite,Urine Negative (Negative); Protein,Urine Negative (Negative); RBC,Urine <1 /hpf (0-5); Specific Gravity,Urine 1.005 (1.001-1.035); Urobilinogen,Urine <2.0 mg/dL (<2.0); WBC,Urine <1 /hpf (0-5)
[2021-04-20 00:09] LABS: ALT 24 U/L (4-49); AST 63 U/L (17-59); African American GFR (CKD) >90 (>60 ml/min/1.73 sqM); Albumin 4.4 g/dL (3.5-5.0); Alkaline Phosphatase 74 U/L (38-126); Anion Gap 14 mmol/L; Blood Urea Nitrogen 6 mg/dL (9-20); Calcium 9.3 mg/dL (8.4-10.2); Carbon Dioxide 20 mmol/L (22-30); Chloride 104 mmol/L (98-107); Glucose 123 mg/dL (74-99); Lipase 563 U/L (23-300); Non-African American GFR(CKD) >90 (>60 ml/min/1.73 sqM); Potassium 3.8 mmol/L (3.5-5.1); Sodium 138 mmol/L (137-145); Total Bilirubin 0.4 mg/dL (0.2-1.3); Total Protein 7.1 g/dL (6.3-8.2)
--- NOTE | 2021-04-20 00:19 | CT ---
EXAMINATION TYPE: CT abdomen pelvis w con DATE OF EXAM: 04/20/2021 COMPARISON: None HISTORY: LLQ pain CT DLP: 629.5 mGycm Automated exposure control for dose reduction was used. CONTRAST: Performed with IV Contrast, patient injected with 100 mL of Isovue 300. Images obtained from the diaphragm to the floor the pelvis with IV contrast. Lung bases are clear. There is no pleural effusion. Heart size is normal. There is no pericardial eff usion. There are calcified splenic granulomata. Liver is intact. The bile ducts are not dilated. Gall bladder appears normal. There is no evidence of pancreatic mass. The stomach is intact. There is no adrenal mass. Kidneys show satisfactory contrast opacification. There is no hydronephrosi s. Delayed images show normal renal excretion. There is no retroperitoneal adenopathy. Ureters are no t dilated. Bladder distends smoothly. There is no inguinal hernia. There is no free fluid in the pelv is. There is no mesenteric edema. There is no ascites or free air. There is no bowel obstruction. Lumbar vertebra have normal alignment. Posterior elements are intact. There is no compression fractur e. The hip joints are intact. Bony pelvis is intact. Appendix is not seen. There is no sign of thicke hope appendix. IMPRESSION: Negative CT scan abdomen and pelvis. Appendix not seen. I do not see a cause for left lower quadrant pain.
[2021-04-20 00:38] LABS: Alcohol 258 mg/dL
[2021-04-20] MEDS ORDERED: SODIUM CHLORIDE 0.9% 500 ML 500 ML IV ONE (00:39)
== END 2021-04-20 01:47 | disposition home or self-care (01) ==
LOC: EC 23:02
DX: K85.90 Acute pancreatitis without necrosis or infection, unspecified (principal); F10.129 Alcohol abuse with intoxication, unspecified; Y90.8 Blood alcohol level of 240 mg/100 ml or more; F17.200 Nicotine dependence, unspecified, uncomplicated; Z79.1 Long term (current) use of non-steroidal anti-inflammatories (NSAID); Z79.899 Other long term (current) drug therapy
CPT/HCPCS: 36415; 80053; 83605; 83690; 85025; 81001; 74177; 96374; 99284; G0480; J2405; Q9967; 80320

== ENCOUNTER 2023-11-22 09:18 | Emergency (ER) | payer OTHER ==
[2023-11-22 10:00] VITALS: RESP 18; TEMP 98.4
[2023-11-22 10:33] LABS: African American GFR (CKD) >90 (>60 ml/min/1.73 sqM); Anion Gap 8 mmol/L; Blood Urea Nitrogen 18 mg/dL (9-20); Calcium 7.9 mg/dL (8.4-10.2); Carbon Dioxide 21 mmol/L (22-30); Chloride 100 mmol/L (98-107); Glucose 125 mg/dL (74-99); Non-African American GFR(CKD) >90 (>60 ml/min/1.73 sqM); Potassium 3.6 mmol/L (3.5-5.1); Sodium 129 mmol/L (137-145)
[2023-11-22] MEDS: ONDANSETRON 4 MG/2 ML VIAL IVP STA (10:35)
[2023-11-22] MEDS: SODIUM CHLORIDE 0.9% 1,000 ML IV STA (10:35)
[2023-11-22] MEDS: KETOROLAC 15 MG/ML 1 ML VIAL IVP STA (10:35)
[2023-11-22 10:41] LABS: HCT 41.8 % (39.0-53.0); HGB 14.6 gm/dL (13.0-17.5); MCH 34.5 pg (25.0-35.0); MCV 98.5 fL (80.0-100.0); Mean Platelet Volume 9.9; RBC 4.24 m/uL (4.30-5.90); RDW 13.7 % (11.5-15.5); WBC 8.3 k/uL (3.8-10.6)
[2023-11-22 10:56] LABS: Band Neutrophils % 13 %; Lymphocytes # (M) 0.42 k/uL (1.0-4.8); Neutrophils % (M) 76 %; Nucleated Red Blood Cells 0 /100 WBC (0-0); Total Cells Counted 200
[2023-11-22 10:59] LABS: Toxic Granulation Present; Toxic Vacuolation Present
[2023-11-22 11:00] LABS: Platelet Count 82 k/uL (150-450)
--- NOTE | 2023-11-22 11:03 | XR ---
EXAMINATION TYPE: XR chest 2V DATE OF EXAM: 11/22/2023 COMPARISON: NONE HISTORY: Chest pain. TECHNIQUE: Frontal and lateral views of the chest are obtained. FINDINGS: There is no focal air space opacity, pleural effusion, or pneumothorax seen. The cardiac silhouette size is within normal limits. The osseous structures are intact. IMPRESSION: No acute cardiopulmonary process.
--- NOTE | 2023-11-22 11:05 | XR ---
Two-view right humerus. DATE: 11/22/2023. COMPARISON: None available. HISTORY: Right upper arm pain for one day. IMPRESSION: There are no acute osseous abnormality. Mild irregularity of the greater tuberosity likely trace rotator cuff tendinopathy.
--- NOTE | 2023-11-22 11:30 | ED ---
General Adult HPI - General Chief complaint: Nausea/Vomiting/Diarrhea Stated complaint: NVD,Flu like Symptoms Time Seen by Provider: 11/22/23 09:50 Source: patient, family, EMS, RN notes reviewed, old records reviewed Mode of arrival: EMS Limitations: no limitations - History of Present Illness Initial comments: Is a 63-year-old male who presents emergency department with nonspecific complaints. Has had nausea, vomiting, diarrhea, nonproductive cough, generalized bodyaches for a few days. Concerned he may have an infection. Presents for further evaluation at this time. Denies chest pain. Denies any shortness of breath. Endorses chronic lower back pain. Denies any recent falls or injuries. Presents for further evaluation. No known sick contacts. - Related Data Previous Rx's Medication Instructions Recorded Acetaminophen [Acetaminophen ER] 650 mg PO Q6HR PRN #30 tablet.er 01/27/19 Ibuprofen [Motrin] 600 mg PO Q8HR PRN #30 tab 01/27/19 Albuterol Sulfate [Proair Hfa] 1 - 2 puff INHALATION Q6HR PRN #1 09/22/19 inhaler Azithromycin 250 mg PO DAILY 4 Days #4 tab 09/22/19 guaiFENesin-DM 600/30MG [Mucinex 1 each PO Q12HR #10 tab.er.12h 09/22/19 Dm] predniSONE 50 mg PO DAILY #5 tablet 09/22/19 Ondansetron [Zofran ODT] 4 mg PO Q8HR PRN #10 tab 04/20/21 Lidocaine 5% Patch [Lidoderm 5% 1 patch TOPICAL DAILY PRN 14 Days 11/22/23 Patch] #14 patch Allergies Allergy/AdvReac Type Severity Reaction Status Date / Time No Known Allergies Allergy Verified 04/19/21 23:09 Review of Systems ROS Statement: Those systems with pertinent positive or pertinent negative responses have been documented in the HPI. Review of Systems: CONST: Denies fever EYES: Denies blurry vision ENT: Endorses nasal congestion, cough C/V: Denies Chest pain RESP: Denies shortness of breath GI: Denies abdominal pain : Denies dysuria SKIN: Denies rash. MSK: Endorses joint pain NEURO: Denies headache ROS Other: All systems not noted in ROS Statement are negative. Past Medical History Past Medical History: Deep Vein Thrombosis (DVT) Additional Past Medical History / Comment(s): "blood clots in both legs, past pneumothorax/chest tube (rt lung) stomach ulcer History of Any Multi-Drug Resistant Organisms: None Reported Past Surgical History: No Surgical Hx Reported Additional Past Surgical History / Comment(s): chest tube Past Anesthesia/Blood Transfusion Reactions: No Reported Reaction Past Psychological History: No Psychological Hx Reported Smoking Status: Current every day smoker Past Alcohol Use History: Daily Past Drug Use History: None Reported - Past Family History Father Family Medical History: Cancer Additional Family Medical History / Comment(s): pt not sure what kind of cancer his dad had Mother Family Medical History: Diabetes Mellitus, Hypertension General Exam - General Exam Comments Initial Comments: General: Appears in no acute distress. HEAD: Normal with no signs of head trauma. EYES: PERRLA, EOMI, conjunctiva normal, no discharge. ENT: Hearing grossly intact, normal oropharynx. RESPIRATORY: Clear breath sounds bilaterally. No wheezes, rales, or rhonchi. C/V: Regular rate and rhythm. S1 and S2 auscultated, no edema, peripheral pulses 2+ and intact throughout ABD: Abd is soft, nontender, nondistended EXT: Normal range of motion, no obvious deformity. Chronic lower back pain. Patient does have some increased tenderness over the right bicep muscle and shoulder. SKIN: No rashes or lesions observed on exposed skin. NEURO: Alert and oriented x 4. Cranial nerves II-XII intact. No focal sensory or strength deficits. Limitations: no limitations Course Vital Signs 11/22/23 11/22/23 09:19 14:47 Temperature 98.4 F 98.4 F Pulse Rate 88 78 Respiratory 18 18 Rate Blood Pressure 128/77 123/78 O2 Sat by Pulse 97 96 Oximetry Medical Decision Making - Medical Decision Making Was pt. sent in by a medical professional or institution (, PA, INSTRUCTOR CREELER, urgent care, hospital, or longterm...) When possible be specific @ -No Did you speak to anyone other than the patient for history (EMS, parent, family, police, friend...)? What history was obtained from this source @ -No Did you review nursing and triage notes (agree or disagree)? Why? @ -I reviewed and agree with nursing and triage notes Were old charts reviewed (outside hosp., previous admission, EMS record, old EKG, old radiological studies, urgent care reports/EKG's, longterm records)? Report findings @ -No old charts were reviewed Differential Diagnosis (chest pain, altered mental status, abdominal pain women, abdominal pain men, vaginal bleeding, weakness, fever, dyspnea, syncope, hea dache, dizziness, GI bleed, back pain, seizure, CVA, palpatations, mental health, musculoskeletal)? @ -Flu, COVID, RSV, pneumonia, dehydration, electrolyte abnormality. This list is not all inclusive. EKG interpreted by me (3pts min.). @ -As above X-rays interpreted by me (1pt min.). @ -Chest x-ray reveals no obvious acute cardiopulmonary process. Humerus x-ray shows findings concerning for possible tendinopathy of the rotator cuff. CT interpreted by me (1pt min.). @ -CT lumbar spine shows subacute fractures of the left transverse processes of L1-L3. U/S interpreted by me (1pt. min.). @ -None done What testing was considered but not performed or refused? (CT, X-rays, U/S, labs)? Why? @ -None What meds were considered but not given or refused? Why? @ -None Did you discuss the management of the patient with other professionals (professionals i.e. , PA, INSTRUCTOR CREELER, lab, RT, psych nurse, hospice social worker, cloth layer, teacher, quality officer, behavioral health case manager)? Give summary @ -No Was smoking cessation discussed for >3mins.? @ -No Was critical care preformed (if so, how long)? @ -No Were there social determinants of health that impacted care today? How? (Homelessness, low income, unemployed, alcoholism, drug addiction, transportation, low edu. Level, literacy, decrease access to med. care, prison, rehab)? @ -No Was there de-escalation of care discussed even if they declined (Discuss DNR or withdrawal of care, Hospice)? DNR status @ -No What co-morbidities impacted this encounter? (DM, HTN, Smoking, COPD, CAD, Cancer, CVA, ARF, Chemo, Hep., AIDS, mental health diagnosis, sleep apnea, morbid obesity)? @ -None Was patient admitted / discharged? Hospital course, mention meds given and route, prescriptions, significant lab abnormalities, going to OR and other pertinent info. @ -Patient presents with flulike symptoms. We will obtain basic workup and he will be symptomatically treated with IV fluids, Zofran, Toradol. He was in agreement this plan. His chronic back pain. Vital signs are within acceptable limits. Patient's labs remarkable for slight hyponatremia however otherwise within acceptable limits. Hyponatremia treated with IV fluids. Viral swabs negative. Chest x-ray unremarkable. On reevaluation we discussed his results. Upper extremity x-ray shows possible tendinitis of the rotator cuff. He expressed understanding. When he stood to walk out, states that his back pain seemed worse than baseline. States it has been ongoing for multiple weeks as he fell maybe 4 to 6 weeks ago on ice. Denies any lower extremity paralysis, bowel or bladder incontinence or retention, as well as saddle paresthesias. We will administer IV morphine as well as provide the patient with a lumbar spine CT. Patient in agreement this plan. Imaging shows subacute fractures of the left transverse processes of L1-L3. Likely result of a fall 4 to 6 weeks ago.. On reevaluation, patient can ambulate. I discussed the results with the patient. No concern for cauda equi na syndrome at this time. I believe it is safe for him to be discharged with close follow-up with spine. Patient was in agreement this plan. I will provide the patient with a prescription for lidocaine patches. I instructed the patient to follow up with their PCP in the next 1-3 days. I provided contact information for follow up with Dr. Harrison. I explained that the patient should return to the emergency department if they experience any worsening symptoms. Strict return precautions were discussed with the patient. The patient expressed understanding of these instructions. I answered all questions that the patient had. The patient was discharged home in good condition with their prescriptions and follow up information. Undiagnosed new problem with uncertain prognosis? @ -No Drug Therapy requiring intensive monitoring for toxicity (Heparin, Nitro, Insulin, Cardizem)? @ -No Were any procedures done? @ -No Diagnosis/symptom? @ -Viral syndrome, nausea and vomiting Acute, or Chronic, or Acute on Chronic? @ -Acute Uncomplicated (without systemic symptoms) or Complicated (systemic symptoms)? @ -Complicated Side effects of treatment? @ -No Exacerbation, Progression, or Severe Exacerbation? @ -No Poses a threat to life or bodily function? How? (Chest pain, [place], [place], pneumonia, PE, COPD, DKA, ARF, appy, cholecystitis, CVA, Diverticulitis, Homicidal, Suicidal, threat to staff... and all critical care pts) @ -Unlikely Diagnosis/symptom? @ -L1-L3 left transverse process fractures of lumbar spine Acute, or Chronic, or Acute on Chronic? @ -Subacute Uncomplicated (without systemic symptoms) or Complicated (systemic symptoms)? @ -Uncomplicated Side effects of treatment? @ -None Exacerbation, Progression, or Severe Exacerbation] @ -No Poses a threat to life or bodily function? @ -No - Lab Data Result diagrams: 11/22/23 10:10 11/22/23 10:10 Lab Results 11/22/23 11/22/23 11/22/23 Range/Units 10:10 10:10 10:10 WBC 8.3 (3.8-10.6) k/uL RBC 4.24 L (4.30-5.90) m/uL Hgb 14.6 (13.0-17.5) gm/dL Hct 41.8 (39.0-53.0) % MCV 98.5 (80.0-100.0) fL MCH 34.5 (25.0-35.0) pg MCHC 35.0 (31.0-37.0) g/dL RDW 13.7 (11.5-15.5) % Plt Count 82 L (150-450) k/uL MPV 9.9 Neutrophils % (Manual) 76 % Band Neuts % (Manual) 13 % Lymphocytes % (Manual) 5 % Monocytes % (Manual) 6 % Neutrophils # (Manual) 7.30 (1.3-7.7) k/uL Lymphocytes # (Manual) 0.42 L (1.0-4.8) k/uL Monocytes # (Manual) 0.50 (0-1.0) k/uL Nucleated RBCs 0 (0-0) /100 WBC Manual Slide Review Performed Toxic Granulation Present Toxic Vacuolation Present Sodium 129 L (137-145) mmol/L Potassium 3.6 (3.5-5.1) mmol/L Chloride 100 (98-107) mmol/L Carbon Dioxide 21 L (22-30) mmol/L Anion Gap 8 mmol/L BUN 18 (9-20) mg/dL Creatinine 0.65 L (0.66-1.25) mg/dL Est GFR (CKD-EPI)AfAm >90 (>60 ml/min/1.73 sqM) Est GFR (CKD-EPI)NonAf >90 (>60 ml/min/1.73 sqM) Glucose 125 H (74-99) mg/dL Calcium 7.9 L (8.4-10.2) mg/dL Influenza Type A (PCR) Not Detected (Not Detectd) Influenza Type B (PCR) Not Detected (Not Detectd) RSV (PCR) Not Detected (Not Detectd) SARS-CoV-2 (PCR) Not Detected (Not Detectd) Disposition Clinical Impression: Viral syndrome, Lumbar transverse process fracture, Thrombocytopenia Disposition: HOME SELF-CARE Condition: Good Instructions (If sedation given, give patient instructions): Acute Nausea and Vomiting (ED), Transverse Process Fracture (ED) Prescriptions: Lidocaine 5% Patch [Lidoderm 5% Patch] 1 patch TOPICAL DAILY PRN 14 Days #14 patch PRN Reason: Pain Is patient prescribed a controlled substance at d/c from ED?: No Referrals: Judson Johnson MD [Primary Care Provider] - 1-2 days Larry Felix DO [Doctor of Osteopathic Medicine] - 1-2 days Time of Disposition: 11:28
[2023-11-22] MEDS: ONDANSETRON 4 MG ODT STARTER PACK 2 TAB BTL PO STA (11:51)
[2023-11-22] MEDS: LIDOCAINE 4% PATCH TOPICAL ONE (12:55)
[2023-11-22] MEDS: ACETAMINOPHEN TAB 500 MG TAB PO STA (12:55)
[2023-11-22] MEDS: MORPHINE SULFATE 4 MG/ML SYRINGE IM STA (12:57)
--- NOTE | 2023-11-22 14:19 | CT ---
EXAMINATION TYPE: CT lumbar spine wo con CT DLP: 604.4 mGycm, Automated exposure control for dose reduction was used. DATE OF EXAM: 11/22/2023 1:37 PM COMPARISON: CLINICAL INDICATION:Male, 63 years old with history of back pain; Lumbar Spine pain TECHNIQUE: Multiple axial images were obtained from the midportion of T11 through the sacroiliac jacki nts. Soft tissue and bone windows in coronal and sagittal planes were obtained and reviewed. 3-D ref ormats of the bones were created on a separate workstation and submitted for review. Contrast used:(None, if empty). Oral contrast used: (None, if empty). FINDINGS: Alignment: There are 5 lumbar type vertebral bodies within normal alignment. Bone: Multilevel degeneration changes with osteophyte formation facet joint arthropathy and disc spa ce narrowing. Findings worse at L5-S1. There is subacute fractures of the left transverse process of L1, L2 and L3. There is mild displacement and mild bony callus formation. Discs: T12-L1: No spinal canal or neural foraminal stenosis is identified. L1-L2: No spinal canal or neural foraminal stenosis is identified. L2-L3: No spinal canal or neural foraminal stenosis is identified. L3-L4: No spinal canal or neural foraminal stenosis is identified. L4-L5: No spinal canal or neural foraminal stenosis is identified. L5-S1: Facet joint arthropathy and disc bulging result with mild spinal canal stenosis and mild bilat eral neural foraminal stenosis. Other: None IMPRESSION: 1. There our subacute fractures of the left transverse process of L1, L2 and L3 with minimal displac ement mild bony changes. 2. No evidence of acute fracture. 3. Mild degeneration changes throughout the spine. 4. No evidence for significant spinal canal stenosis. No evidence for significant neural foraminal s tenosis.
[2023-11-22] MEDS: ACET/COD 300 MG/30 MG STARTER PACK 6 TAB BTL PO STA (14:38)
[2023-11-22 15:14] VITALS: BP 123/78; PULSE 78
== END 2023-11-22 14:47 | disposition home or self-care (01) ==
LOC: EC 09:18
DX: B34.9 Viral infection, unspecified (principal); S32.019A Unspecified fracture of first lumbar vertebra, initial encounter for closed fracture; S32.029A Unspecified fracture of second lumbar vertebra, initial encounter for closed fracture; S32.039A Unspecified fracture of third lumbar vertebra, initial encounter for closed fracture; D69.6 Thrombocytopenia, unspecified; E87.1 Hypo-osmolality and hyponatremia; G89.29 Other chronic pain; F17.200 Nicotine dependence, unspecified, uncomplicated; Z20.822 Contact with and (suspected) exposure to COVID-19; X58.XXXA Exposure to other specified factors, initial encounter
CPT/HCPCS: 36415; 80048; 85025; 87636; 73060; 71046; 72131; 99285; 96374; 96375; 96372; J2270; J2405; J1885; S0119